=== PATIENT | male | born 1955 | race Caucasian/White ===

== ENCOUNTER 2022-07-05 13:29 | Emergency (ER) | payer OTHER ==
[2022-07-05 13:45] VITALS: BP 140/60; PULSE 93; RESP 18; TEMP 98.4
[2022-07-05] MEDS ORDERED: SODIUM CHLORIDE 0.9% 1,000 ML IV STA (14:16)
--- NOTE | 2022-07-05 14:24 | ED ---
Neuro HPI - General Chief Complaint: Neuro Symptoms/Deficit Stated Complaint: poss TIA Time Seen by Provider: 07/05/22 13:32 Source: patient, EMS, RN notes reviewed, old records reviewed Mode of arrival: EMS Limitations: no limitations - History of Present Illness Is the patient presenting with stroke symptoms?: Yes -: minutes(s) Initial Comments: This is a 67-year-old male to the emergency department for evaluation patient's presenting from home. Patient presents for lightheadedness dizziness weakness not feeling well. Patient states he took his blood pressure medications tonight began to feel like he may pass out lightheadedness with numbness and tingling. Patient then began to have some slurred speech and left arm numbness and tingling. History of atherosclerosis. No headache no chest pain or shortness of breath no abdominal pain, no other complaints. Location: speech, left arm History of same: Yes Place: home Severity: mild, moderate Quality: weak, numb, tingling Improves With: time (Symptoms resolved) Worsens With: none Context: gradual onset Associated Symptoms: denies other symptoms Treatments Prior to Arrival: none - Related Data Home Medications: Home Medications Medication Instructions Recorded Confirmed Aspirin EC [Ecotrin Low Dose] 81 mg PO DAILY 07/05/22 07/05/22 Cholecalciferol [Vitamin D3 (25 25 mcg PO DAILY 07/05/22 07/05/22 Mcg = 1000 Iu)] Fluticasone Propion/Salmeterol 1 puff INHALATION RT-BID 07/05/22 07/05/22 [Fluticasone-Salmeterol 250-50] Loratadine 10 mg PO DAILY 07/05/22 07/05/22 Nitroglycerin Sl Tabs [Nitrostat] 0.4 mg SL Q5M PRN 07/05/22 07/05/22 Omeprazole [PriLOSEC] 20 mg PO DAILY 07/05/22 07/05/22 Rosuvastatin Calcium [Crestor] 40 mg PO DAILY 07/05/22 07/05/22 hydrALAZINE HCL [Apresoline] 50 mg PO DAILY 07/05/22 07/05/22 lisinopriL [Zestril] 10 mg PO DAILY 07/05/22 07/05/22 Allergies/Adverse Reactions: Allergies Allergy/AdvReac Type Severity Reaction Status Date / Time brimonidine Allergy Rash/Hives Verified 07/05/22 14:53 amlodipine [From Norvasc] AdvReac "doesn't Verified 07/05/22 14:53 feel well" atorvastatin [From Lipitor] AdvReac muscle pain Verified 07/05/22 14:53 simvastatin AdvReac Nausea & Verified 07/05/22 14:53 Vomiting Review of Systems ROS Statement: Those systems with pertinent positive or pertinent negative responses have been documented in the HPI. ROS Other: All systems not noted in ROS Statement are negative. General Exam - General Exam Comments Initial Comments: NIH of 0 with no focal neurological deficit currently Limitations: no limitations General appearance: alert, in no apparent distress Head exam: Present: atraumatic, normocephalic, normal inspection Eye exam: Present: normal appearance, PERRL, EOMI. Absent: scleral icterus, conjunctival injection, periorbital swelling ENT exam: Present: normal exam, mucous membranes moist Neck exam: Present: normal inspection. Absent: tenderness, meningismus, lymphadenopathy Respiratory exam: Present: normal lung sounds bilaterally. Absent: respiratory distress, wheezes, rales, rhonchi, stridor Cardiovascular Exam: Present: regular rate, normal rhythm, normal heart sounds. Absent: systolic murmur, diastolic murmur, rubs, gallop, clicks GI/Abdominal exam: Present: soft, normal bowel sounds. Absent: distended, tenderness, guarding, rebound, rigid Extremities exam: Present: normal inspection, full ROM, normal capillary refill. Absent: tenderness, pedal edema, joint swelling, calf tenderness Back exam: Present: normal inspection Neurological exam: Present: alert, oriented X3, CN II-XII intact Psychiatric exam: Present: normal affect, normal mood Skin exam: Present: warm, dry, intact, normal color. Absent: rash Stroke MDM - Lab Data Result diagrams: 07/05/22 14:29 07/05/22 14:29 Lab Results 07/05/22 07/05/22 07/05/22 Range/Units 14:29 14:29 14:29 WBC 9.5 (3.8-10.6) k/uL RBC 4.92 (4.30-5.90) m/uL Hgb 15.1 (13.0-17.5) gm/dL Hct 46.0 (39.0-53.0) % MCV 93.5 (80.0-100.0) fL MCH 30.6 (25.0-35.0) pg MCHC 32.7 (31.0-37.0) g/dL RDW 13.1 (11.5-15.5) % Plt Count 265 (150-450) k/uL MPV 7.7 Neutrophils % 81 % Lymphocytes % 14 % Monocytes % 4 % Eosinophils % 1 % Basophils % 0 % Neutrophils # 7.6 (1.3-7.7) k/uL Lymphocytes # 1.3 (1.0-4.8) k/uL Monocytes # 0.4 (0-1.0) k/uL Eosinophils # 0.1 (0-0.7) k/uL Basophils # 0.0 (0-0.2) k/uL PT 10.6 (9.0-12.0) sec INR 1.0 (<1.2) APTT 23.9 (22.0-30.0) sec Sodium 138 (137-145) mmol/L Potassium 4.2 (3.5-5.1) mmol/L Chloride 102 (98-107) mmol/L Carbon Dioxide 25 (22-30) mmol/L Anion Gap 11 mmol/L BUN 8 L (9-20) mg/dL Creatinine 0.57 L (0.66-1.25) mg/dL Est GFR (CKD-EPI)AfAm >90 (>60 ml/min/1.73 sqM) Est GFR (CKD-EPI)NonAf >90 (>60 ml/min/1.73 sqM) Glucose 99 (74-99) mg/dL Calcium 9.8 (8.4-10.2) mg/dL Total Bilirubin 1.4 H (0.2-1.3) mg/dL AST 23 (17-59) U/L ALT 15 (4-49) U/L Alkaline Phosphatase 101 (38-126) U/L Creatine Kinase 90 (55-170) U/L Troponin I (0.000-0.034) ng/mL Total Protein 7.5 (6.3-8.2) g/dL Albumin 4.5 (3.5-5.0) g/dL 07/05/22 Range/Units 14:29 WBC (3.8-10.6) k/uL RBC (4.30-5.90) m/uL Hgb (13.0-17.5) gm/dL Hct (39.0-53.0) % MCV (80.0-100.0) fL MCH (25.0-35.0) pg MCHC (31.0-37.0) g/dL RDW (11.5-15.5) % Plt Count (150-450) k/uL MPV Neutrophils % % Lymphocytes % % Monocytes % % Eosinophils % % Basophils % % Neutrophils # (1.3-7.7) k/uL Lymphocytes # (1.0-4.8) k/uL Monocytes # (0-1.0) k/uL Eosinophils # (0-0.7) k/uL Basophils # (0-0.2) k/uL PT (9.0-12.0) sec INR (<1.2) APTT (22.0-30.0) sec Sodium (137-145) mmol/L Potassium (3.5-5.1) mmol/L Chloride (98-107) mmol/L Carbon Dioxide (22-30) mmol/L Anion Gap mmol/L BUN (9-20) mg/dL Creatinine (0.66-1.25) mg/dL Est GFR (CKD-EPI)AfAm (>60 ml/min/1.73 sqM) Est GFR (CKD-EPI)NonAf (>60 ml/min/1.73 sqM) Glucose (74-99) mg/dL Calcium (8.4-10.2) mg/dL Total Bilirubin (0.2-1.3) mg/dL AST (17-59) U/L ALT (4-49) U/L Alkaline Phosphatase (38-126) U/L Creatine Kinase (55-170) U/L Troponin I <0.012 (0.000-0.034) ng/mL Total Protein (6.3-8.2) g/dL Albumin (3.5-5.0) g/dL - NIH Stroke Scale 1a. Level of Consciousness: (0) alert 1b. LOC Questions: (0) answers correctly 1c. LOC Commands: (0) performs tasks correctly 2. Best Gaze: (0) normal 3. Visual: (0) no visual loss 4. Facial Palsy: (0) normal symmetrical movement 5a. Motor Arm Left: (0) no drift 5b. Motor Arm Right: (0) no drift 6a. Motor Leg Left: (0) no drift 6b. Motor Leg Right: (0) no drift 7. Limb Ataxia: (0) absent 8. Sensory: (0) normal 9. Best Language: (0) no aphasia 10. Dysarthria: (0) normal 11. Extinction/Inattention: (0) no abnormality - Thrombolytic Inclusion/Exclusion Thrombolytic Inclusion Criteria: Symptom Onset < 4.5 h - Medical Decision Making 67 male to the emergency department for evaluation patient has TIA as all neurological symptoms has resolved. Patient does have atherosclerosis which he is aware of and is follow-up with interventional cardiology, patient will keep that appointment and can be discharged home - Radiology Data Radiology results: report reviewed (CT CTA shows significant atherosclerosis), image reviewed - EKG Data -: EKG Interpreted by Me (EKG sinus 65 [place] 154 QRS 128 QTc 418) Past Medical History Past Medical History: CVA/TIA, Hypertension Course Vital Signs 07/05/22 13:41 Temperature 98.4 F Pulse Rate 93 Respiratory 18 Rate Blood Pressure 140/60 O2 Sat by Pulse 98 Oximetry - Reevaluation(s) Reevaluation #1: 07/05/22 16:51 Medical record. Is reviewed Reevaluation #2: 07/05/22 16:51 Patient symptoms remain resolved Reevaluation #3: 07/05/22 16:51 Patient informed results questions answered Reevaluation #4: 07/05/22 16:51 Was pt. sent in by a medical professional or institution? @ -no Did you speak to anyone other than the patient for history? @ -no Did you review nursing and triage notes? @ -agree Were old charts reviewed? @ -no Differential Diagnosis? @ -prior EKG interpreted by me (3pts min.)? @ -yes X-rays interpreted by me (1pt min.)? @ -yes CT interpreted by me (1pt min.)? @ -no U/S interpreted by me (1pt. min.)? @ -no What testing was considered but not performed? (CT, X-rays, U/S, labs)? Why? @ -no What meds were considered but not given? Why? @ -no Did you discuss the management of the patient with other professionals? @ -no Did you reconcile home meds? @ -no Was smoking cessation discussed for >3mins.? @ -no Was critical care preformed (if so, how long)? @ -no Were there social determinants of health that impacted care today? How? (Homelessness, low income, unemployed, alcoholism, drug addiction, transportation, low edu. Level, literacy, decrease access to med. care, nursing home, rehab)? @ -no Was there de-escalation of care discussed even if they declined? (Discuss DNR or withdrawal of care, Hospice)? @ -no What co-morbidities impacted this encounter? (DM, HTN, Smoking, COPD, CAD, Cancer, CVA, Hep., AIDS, mental health diagnosis, sleep apnea, morbid obesity)? @ -no Was patient admitted / discharged? @ -dc Undiagnosed new problem with uncertain prognosis? @ -no Drug Therapy requiring intensive monitoring for toxicity (Heparin, Nitro, Insulin, Cardizem)? @ -no Were any procedures done? @ -no Diagnosis/symptom? @ -TIA Acute, or Chronic, or Acute on Chronic? @ -acute Uncomplicated (without systemic symptoms) or Complicated (systemic symptoms)? @ -no Side effects of treatment? @ -no Exacerbation, Progression, or Severe Exacerbation] @ -Exacerbation, resolved Poses a threat to life or bodily function? @ -no Reevaluation #5: 07/05/22 16:51 Differential Altered Mental Status: Hypoglycemia, DKA, hypercapnia, ETOH, overdose, CO poisoning, trauma, myxedema coma, HTN encephalopathy, infection, encephalitis, psychosis, intercranial hemorrhage, hepatic encephalopathy, meningitis, CVA, this is not meant to be an all-inclusive list Disposition Clinical Impression: Transient cerebral ischemia Disposition: HOME SELF-CARE Condition: Good Instructions (If sedation given, give patient instructions): Transient Ischemic Attack (ED) Is patient prescribed a controlled substance at d/c from ED?: No Referrals: [facility],Clinic [Primary Care Provider] - 1-2 days Time of Disposition: 16:45
[2022-07-05 14:55] LABS: Basophils % (A) 0 %; Eosinophils # (A) 0.1 k/uL (0-0.7); Eosinophils % (A) 1 %; HGB 15.1 gm/dL (13.0-17.5); Lymphocytes # (A) 1.3 k/uL (1.0-4.8); Lymphocytes % (A) 14 %; MCH 30.6 pg (25.0-35.0); MCHC 32.7 g/dL (31.0-37.0); MCV 93.5 fL (80.0-100.0); Mean Platelet Volume 7.7; Monocytes # (A) 0.4 k/uL (0-1.0); Monocytes % (A) 4 %; Neutrophils # (A) 7.6 k/uL (1.3-7.7); Neutrophils % (A) 81 %; Platelet Count 265 k/uL (150-450); RBC 4.92 m/uL (4.30-5.90); RDW 13.1 % (11.5-15.5); WBC 9.5 k/uL (3.8-10.6)
[2022-07-05 15:11] LABS: ALT 15 U/L (4-49); AST 23 U/L (17-59); African American GFR (CKD) >90 (>60 ml/min/1.73 sqM); Albumin 4.5 g/dL (3.5-5.0); Alkaline Phosphatase 101 U/L (38-126); Anion Gap 11 mmol/L; Blood Urea Nitrogen 8 mg/dL (9-20); Calcium 9.8 mg/dL (8.4-10.2); Carbon Dioxide 25 mmol/L (22-30); Chloride 102 mmol/L (98-107); Creatine Kinase 90 U/L (55-170); Glucose 99 mg/dL (74-99); Non-African American GFR(CKD) >90 (>60 ml/min/1.73 sqM); Potassium 4.2 mmol/L (3.5-5.1); Sodium 138 mmol/L (137-145); Total Bilirubin 1.4 mg/dL (0.2-1.3); Total Protein 7.5 g/dL (6.3-8.2)
[2022-07-05 15:20] LABS: Partial Thromboplastin Time 23.9 sec (22.0-30.0); Prothrombin Time 10.6 sec (9.0-12.0)
--- NOTE | 2022-07-05 15:34 | CT ---
EXAMINATION TYPE: CT brain wo con for TPA DATE OF EXAM: 07/05/2022 COMPARISON: None INDICATION: cva DLP: 1111.6 mGycm, Automated exposure control for dose reduction was used. CONTRAST: None CT of the brain is performed utilizing 3 mm thick sections through the posterior fossa and 3 mm thick sections through the remaining calvarium. Study is performed within 24 hours of arrival to the hosp ital. No abnormal hyperdensity is present to suggest an acute intracranial hemorrhage. No mass lesion is evident. No acute infarcts are evident. Ventricles and sulci are appropriate for the patient age. Paranasal sinuses and mastoid air cells within the [id number] are clear. IMPRESSIONS: 1. No acute intracranial process. Follow-up MRI can be performed as clinically indicated.
--- NOTE | 2022-07-05 15:49 | CT ---
EXAMINATION TYPE: CT angio head neck DATE OF EXAM: 07/05/2022 HISTORY: cva COMPARISON: CT DLP: 464.5 mGycm. Automated Exposure Control for Dose Reduction was Utilized. TECHNIQUE: CTA scan of the neck is performed with IV Contrast, patient injected with 65cc mL of Isov ue 370, axial images are obtained, coronal and sagittal reformatted images are reviewed. Source imag es are reviewed. FINDINGS: Carotid/Vascular Structures: There is a 3 vessel arch. Vertebral arteries are codominant. Common galvin tid arteries bifurcate into internal and external carotid arteries. Calcification and atheromatous pl aquing is present bilaterally. On the right this is 67% narrowed. On the left this is 52% narrowed. I nternal carotid arteries and vertebral arteries are patent to the skull base. Cervical of Mcgarry: Vertebral basilar system appears normal. Posterior cerebral vasculature is unrema rkable. Internal carotid arteries bifurcate normally into A1 and M1 segments. Right A1 segment is obdulia ewhat hypoplastic. A2 segments are normal. The anterior communicating artery is patent. Left Posterio r communicating artery is patent. Right posterior communicating artery is patent. IMPRESSION: 1. Moderate Narrowing between 50 and 69% bilateral internal carotid arteries. Moderate to severe narr owing of 69% right internal carotid artery stenosis. Low end of Moderate narrowing of 50 to percent l eft internal carotid artery. 2. No acute changes sitka of Mcgarry. A somewhat hypoplastic right A1 segment is present. NASCET criteria was used in interpretation of this exam?
== END 2022-07-05 17:01 | disposition home or self-care (01) ==
LOC: EC 13:29
DX: G45.9 Transient cerebral ischemic attack, unspecified (principal); I10 Essential (primary) hypertension; Z79.82 Long term (current) use of aspirin; Z79.899 Other long term (current) drug therapy; Z88.5 Allergy status to narcotic agent; Z88.6 Allergy status to analgesic agent; Z88.8 Allergy status to other drugs, medicaments and biological substances
CPT/HCPCS: 36415; 80053; 82550; 84484; 85025; 85610; 85730; 70496; 70450; 70498; 99284; 96360; Q9967; 93005

== ENCOUNTER 2022-07-24 10:10 | Inpatient (IN) | payer OTHER ==
[~2022-07-24 10:10] MED LIST: ALPRAZolam 0.25 MG TAB PO PRN; ALPRAZolam 0.5 MG TAB PO PRN; ASPIRIN 325 MG TAB PO PRN; CLOPIDOGREL 75 MG TAB PO PRN; NITROGLYCERIN SL TABS 0.4 MG TAB SUBLINGUAL PRN; RX INFO: IV CONTRAST WAS GIVEN 1 EACH MISC MISCELLANE PRN; SODIUM CHLORIDE 0.9% 1,000 ML in EMPTY BAG 1 BAG IV ONE
[2022-07-24] MEDS ORDERED: SODIUM CHLORIDE 0.9% 1,000 ML IV ONE (10:37)
[2022-07-24] MEDS ORDERED: HEPARIN SODIUM 1,000 UN/ML (10ML VL) ONE (12:01)
[2022-07-24] MEDS ORDERED: hydrALAZINE HCL 20 MG/ML 1 ML VIAL ONE (12:21)
[2022-07-24] MEDS ORDERED: hydrALAZINE HCL 20 MG/ML 1 ML VIAL IV ONE ×2 (12:23→12:29)
[2022-07-24] MEDS ORDERED: LIDOCAINE 1% INJ 10MG/ML (20 ML MDV) SQ ONE ×2 (12:24)
[2022-07-24] MEDS: HEPARIN SODIUM 1,000 UN/ML (10ML VL) IV ONE ×2 (12:26→12:52)
[2022-07-24] MEDS ORDERED: HEPARIN SODIUM 1,000 UN/ML (10ML VL) IV ONE (13:11)
[2022-07-24] MEDS ORDERED: IOPAMIDOL-250 100ML BTL INTRAARTER ONE (13:19)
[2022-07-24] MEDS ORDERED: ATROPINE SULFATE 0.1 MG/ML 10ML SYRINGE IV PRN (13:28)
[2022-07-24] MEDS ORDERED: MAG HYDROX/AL HYDROX/SIMETH 30 ML CUP PO PRN (13:28)
--- NOTE | 2022-07-24 13:31 | P.OP ---
Description of Procedure: DESCRIPTION OF PROCEDURE(S): PROCEDURES PERFORMED: Ascending aortic root angiography, right carotid angiography, right carotid stent 9-7mm x 40mm XACT post with a 5.0 balloon INDICATION: Symptomatic right carotid disease CONSENT:I have discussed the risks, benefits and alternative therapies for the above-mentioned procedure and for both sedation/analgesia as well as necessary blood product administration, if indicated, as they pertain to this patient. The patient has indicated understanding and acceptance of the risks and pro cedures discussed. PROCEDURE: After the risks, benefits and alternatives of the above mentioned procedure explained in detail with the patient, informed consent was obtained. Patient was taken to the catheterization lab and prepped and draped in usual fashion. 1% lidocaine was used to anesthetize the right femoral area. A 6- Kenyan sheath was placed in the right femoral artery using modified Seldinger technique. A 5-Kenyan pigtail catheter was inserted to the ascending aorta and DSA imaging was obtained. Next using VTK catheter the proximal right carotid artery was engaged and selective angiography was performed. Angiography showed severe disease and therefore intervention was recommended. Using a 0.035 Warren advantage wire this was placed into the right external carotid artery. The 6Fr sheath was exchanged for a 6Fr destination sheath. Next a 0.014 wire was advanced into the petrous portion of the right internal carotid artery. Predilation was performed with a 4.0 x 20 mm balloon. Next a 9 x 7 x 40 mm XACT stent with placed from the right common to right internal carotid artery. The stent was post dilated with a 5.0 balloon. Preintervention there was 90% stenosis with uninhibted flow. Post intervention there was <10% stenosis and uninhibted flow. Final angiograms were performed. A right femoral angiogram was performed and anatomoy was suitable for closure. A 6Fr Angioseal was placed with hemostasis achieved. The patient tolerated the procedure well. Patient was transported back to the post catheterization holding area in stable condition. Conscious Sedation: Patient was monitored under the direct supervision of vision of myself for conscious sedation using Versed and fentanyl for a total duration of 58 minutes ASCENDING AORTA: There is no significant aneurysm or stenosis. Right common carotid: 0% stenosis Right internal carotid artery: 90% internal carotid artery stenosis FINAL IMPRESSION: 1. 90% right carotid artery stenosis, s/p right carotid stent 9-7mm x 40mm XACT post with a 5.0 balloon PLAN: 1. Aggressive risk factor modification per most recent ACC/AHA guidelines. 2. Aspirin and Plavix for 12 months.
--- NOTE | 2022-07-24 13:47 | IR ---
EXAMINATION TYPE: IR stent intravas non coronary DATE OF EXAM: 07/24/2022 COMPARISON: NONE HISTORY: Fluoroscopy time. Fluoroscopy was provided to the referring clinician.
[2022-07-24 15:02] LABS: Glucose,Whole Blood 94 mg/dL (70-110)
[2022-07-24] MEDS ORDERED: ONDANSETRON 4 MG/2 ML VIAL IVP PRN (16:17)
[2022-07-24] MEDS: PANTOPRAZOLE 40 MG TABLET PO SCH (16:22)
[2022-07-24] MEDS: SYMBICORT 80-4.5 MCG INHALER INHALATION SCH (21:00)
[2022-07-24] MEDS ORDERED: ACETAMINOPHEN TAB 325 MG TAB PO PRN (22:24)
[2022-07-25 06:04] LABS: Basophils % (A) 0 %; Eosinophils # (A) 0.1 k/uL (0-0.7); Eosinophils % (A) 1 %; HCT 42.9 % (39.0-53.0); HGB 13.5 gm/dL (13.0-17.5); Lymphocytes # (A) 1.3 k/uL (1.0-4.8); Lymphocytes % (A) 14 %; MCH 30.1 pg (25.0-35.0); MCHC 31.5 g/dL (31.0-37.0); MCV 95.4 fL (80.0-100.0); Mean Platelet Volume 7.6; Monocytes # (A) 0.5 k/uL (0-1.0); Monocytes % (A) 5 %; Neutrophils # (A) 7.6 k/uL (1.3-7.7); Neutrophils % (A) 79 %; Platelet Count 263 k/uL (150-450); RDW 13.2 % (11.5-15.5); WBC 9.6 k/uL (3.8-10.6)
[2022-07-25 06:28] LABS: African American GFR (CKD) >90 (>60 ml/min/1.73 sqM); Anion Gap 6 mmol/L; Blood Urea Nitrogen 14 mg/dL (9-20); Calcium 9.3 mg/dL (8.4-10.2); Carbon Dioxide 30 mmol/L (22-30); Chloride 103 mmol/L (98-107); Glucose 112 mg/dL (74-99); Non-African American GFR(CKD) >90 (>60 ml/min/1.73 sqM); Potassium 4.7 mmol/L (3.5-5.1); Sodium 139 mmol/L (137-145)
[2022-07-25] MEDS: PANTOPRAZOLE 40 MG TABLET PO SCH (06:49)
[2022-07-25] MEDS: SYMBICORT 80-4.5 MCG INHALER INHALATION SCH (08:37)
[2022-07-25] MEDS ORDERED: ASPIRIN 81 MG PO SCH (09:00)
[2022-07-25] MEDS ORDERED: CLOPIDOGREL 75 MG TAB PO SCH (09:00)
[2022-07-25] MEDS ORDERED: LORATADINE 10 MG TAB PO SCH (09:00)
[2022-07-25] MEDS ORDERED: ATORVASTATIN 80 MG TAB PO SCH (09:00)
--- NOTE | 2022-07-25 09:25 | P.DS ---
Providers Date of admission: 07/24/22 10:10 Attending physician: Carlos Harper DO Primary care physician: [facility] Course: Patient is a pleasant 67-year-old male with history of right carotid artery stenosis as well as recent left TIA symptoms who presented for carotid angiogram with stenting. Patient underwent successful right carotid angiogram with stenting of his right internal carotid artery 07/24/2022. Initially he had significant elevated blood pressure during the procedure however this came down after stenting. He has remained hemodynamically stable without significant hypotension or bradycardia. He denies any chest pain or pressure. He has been tolerating aspirin and Plavix. Appears stable for discharge home 07/25. No significant hematomas right femoral site. Plan - Discharge Summary Discharge Rx Participant: No New Discharge Prescriptions: Continue Nitroglycerin Sl Tabs [Nitrostat] 0.4 mg SL Q5M PRN PRN Reason: Chest Pain Clopidogrel [Plavix] 75 mg PO QAM Rosuvastatin Calcium [Crestor] 40 mg PO QAM Omeprazole [PriLOSEC] 20 mg PO BID Loratadine 10 mg PO QAM Fluticasone Propion/Salmeterol [Fluticasone-Salmeterol 250-50] 1 puff I NHALATION RT-BID Aspirin EC [Ecotrin Low Dose] 81 mg PO QAM Discharge Medication List Aspirin EC [Ecotrin Low Dose] 81 mg PO QAM 07/05/22 [History] Fluticasone Propion/Salmeterol [Fluticasone-Salmeterol 250-50] 1 puff INHALATION RT-BID 07/05/22 [History] Loratadine 10 mg PO QAM 07/05/22 [History] Nitroglycerin Sl Tabs [Nitrostat] 0.4 mg SL Q5M PRN 07/05/22 [History] Omeprazole [PriLOSEC] 20 mg PO BID 07/05/22 [History] Rosuvastatin Calcium [Crestor] 40 mg PO QAM 07/05/22 [History] Clopidogrel [Plavix] 75 mg PO QAM 07/23/22 [History] Follow up Appointment(s)/Referral(s): Carlos Harper DO [STAFF PHYSICIAN] - 08/02/22 8:45 am (SaturdayJuly AT 8:45 am FOR FOLLOW UP APPT) Patient Instructions/Handouts: Moderate Sedation (DC), Pacemaker Generator Change (DC)
[2022-07-25 09:49] VITALS: BP 132/61; PULSE 49; RESP 16; TEMP 98.3
== END 2022-07-25 12:57 | disposition home or self-care (01) | DRG 36 ==
LOC: 2ORMAIN 10:10 → 2SICU 14:20
PROVIDERS: ADMIT Internal Medicine; ATTEND Internal Medicine
PROC: B3101ZZ Fluoroscopy of Thoracic Aorta using Low Osmolar Contrast (ICD-10-PCS; 2022-07-24)
PROC: B41F1ZZ Fluoroscopy of Right Lower Extremity Arteries using Low Osmolar Contrast (ICD-10-PCS; 2022-07-24)
PROC: B3161ZZ Fluoroscopy of Right Internal Carotid Artery using Low Osmolar Contrast (ICD-10-PCS; 2022-07-24)
PROC: 037K3DZ Dilation of Right Internal Carotid Artery with Intraluminal Device, Percutaneous Approach (ICD-10-PCS; principal; 2022-07-24 12:00)
DX: I65.21 Occlusion and stenosis of right carotid artery (principal); I25.10 Atherosclerotic heart disease of native coronary artery without angina pectoris; I25.2 Old myocardial infarction; J44.9 Chronic obstructive pulmonary disease, unspecified; F31.9 Bipolar disorder, unspecified; I10 Essential (primary) hypertension; E78.5 Hyperlipidemia, unspecified; I08.3 Combined rheumatic disorders of mitral, aortic and tricuspid valves; F90.9 Attention-deficit hyperactivity disorder, unspecified type; Z86.73 Personal history of transient ischemic attack (TIA), and cerebral infarction without residual deficits; Z79.82 Long term (current) use of aspirin
CPT/HCPCS: 80048; 85025; 94640

== ENCOUNTER → 2023-07-18 | Outpatient (CLI) | payer OTHER ==
--- NOTE | 2023-07-18 19:04 | US ---
EXAMINATION TYPE: US duplex aorta DATE OF EXAM: 07/18/2023 COMPARISON: NONE CLINICAL INDICATION: Male, 68 years old with history of F17.211 NICOTINE DEPENDENCE; Medical marijuan a, PAD, and [place] 1990s TECHNIQUE: Multiple sonographic images of the abdominal aorta are obtained. FINDINGS: EXAM MEASUREMENTS: Abdominal Aorta: Proximal: 2.8 x 2.8 cm Mid: 2.1 x 2.9 cm Distal: 2.0 x 2.2 cm Bifurcation: Right Iliac: 1.0 x 1.3 cm Left Iliac: 0.8 x 0.9 cm INTERNATIONAL NURSE NOTES: Calcific overall IMPRESSION: Atheromatous plaquing through the abdominal aorta. No aneurysmal dilatation is evident.
== END | disposition home or self-care (01) ==
LOC: RADUSWWP 06:43
PROVIDERS: ATTEND Family Medicine
DX: Z13.6 Encounter for screening for cardiovascular disorders (principal); I70.0 Atherosclerosis of aorta; F17.211 Nicotine dependence, cigarettes, in remission; I73.9 Peripheral vascular disease, unspecified; I25.2 Old myocardial infarction
CPT/HCPCS: 76706

== ENCOUNTER 2023-10-25 13:21 | Inpatient (IN) | payer OTHER ==
[2023-10-25 14:14] LABS: Basophils # (A) 0.1 k/uL (0-0.2); Basophils % (A) 1 %; Eosinophils # (A) 0.4 k/uL (0-0.7); Eosinophils % (A) 4 %; HCT 43.6 % (39.0-53.0); HGB 14.3 gm/dL (13.0-17.5); Lymphocytes # (A) 2.7 k/uL (1.0-4.8); Lymphocytes % (A) 28 %; MCH 30.7 pg (25.0-35.0); MCHC 32.7 g/dL (31.0-37.0); MCV 93.8 fL (80.0-100.0); Mean Platelet Volume 7.4; Monocytes # (A) 0.5 k/uL (0-1.0); Monocytes % (A) 5 %; Neutrophils # (A) 5.7 k/uL (1.3-7.7); Neutrophils % (A) 60 %; Platelet Count 273 k/uL (150-450); RBC 4.64 m/uL (4.30-5.90); RDW 13.4 % (11.5-15.5); WBC 9.6 k/uL (3.8-10.6)
[2023-10-25 14:27] LABS: ALT 31 U/L (4-49); AST 29 U/L (17-59); African American GFR (CKD) >90 (>60 ml/min/1.73 sqM); Albumin 4.2 g/dL (3.5-5.0); Alkaline Phosphatase 68 U/L (38-126); Anion Gap 6 mmol/L; Blood Urea Nitrogen 15 mg/dL (9-20); Calcium 9.7 mg/dL (8.4-10.2); Carbon Dioxide 29 mmol/L (22-30); Chloride 105 mmol/L (98-107); Glucose 95 mg/dL (74-99); Magnesium 2.1 mg/dL (1.6-2.3); Non-African American GFR(CKD) >90 (>60 ml/min/1.73 sqM); Potassium 3.9 mmol/L (3.5-5.1); Sodium 140 mmol/L (137-145); Total Bilirubin 1.1 mg/dL (0.2-1.3); Total Protein 6.8 g/dL (6.3-8.2)
[2023-10-25 14:30] LABS: INR 0.9 (<1.2); Partial Thromboplastin Time 25.8 sec (22.0-30.0); Prothrombin Time 10.5 sec (10.0-12.5)
--- NOTE | 2023-10-25 14:54 | XR ---
EXAMINATION TYPE: XR chest 2V DATE OF EXAM: 10/25/2023 COMPARISON: None HISTORY: 68-year-old male with chest pain TECHNIQUE: PA and lateral views FINDINGS: The cardiomediastinal silhouette, aorta, and pulmonary vasculature are within normal limits. Mild hyp erinflation. Lungs and pleural spaces are clear. IMPRESSION: Mild hyperinflation may relate to depth of inspiration or underlying emphysema. Otherwise, no acute p rocess seen.
--- NOTE | 2023-10-25 15:22 | ED ---
Chest Pain HPI - General Source: patient, family, RN notes reviewed Mode of arrival: ambulatory Limitations: no limitations <Malka Coles - Last Filed: 10/25/23 15:21> - General Source: patient, family, RN notes reviewed Mode of arrival: ambulatory Limitations: no limitations - History of Present Illness MD Complaint: chest pain <Blessing Borja - Last Filed: 10/26/23 03:19> <Sita - Last Filed: 10/26/23 10:54> - General Chief Complaint: Chest Pain Stated Complaint: chest pain Time Seen by Provider: 10/25/23 15:21 - History of Present Illness Initial Comments: Quick note: Patient is a 68-year-old male presented to the ER with a chief complaint of chest discomfort. Patient has an extensive cardiac history and following up with Dr. Harper. He does have [address]. He states he has been having chest pain for about 1 week mild in nature. He states for the past 3 days it is progressively worsening. Worse today which brought him to the ER. Past couple of days he has been able to take nitro every 2 hours with improvement of pain. He denies any shortness of breath, nausea, vomiting, lightheadedness or dizziness. No peripheral edema. (Malka Coles) This is a 68-year-old male who presents to the emergency department for chest pain. Patient has a history of 3 cardiac stents and follows with Dr. Harper, cardiology. Reports intermittent chest pain over the last week, but states that it started to get worse over the last couple of days. Pain is described as a centralized chest pressure. States that he takes nitroglycerin when the pain acts up on him and it improves symptoms for anywhere from 30 minutes to a couple of hours. Most recently took a nitroglycerin around 3 PM and states that it is just on starting to wear off. Denies any shortness of breath. Unsure when he had his last stent placed. (Blessing Borja) - Related Data Home Medications Medication Instructions Recorded Confirmed Aspirin EC [Ecotrin Low Dose] 81 mg PO DAILY@0200 07/05/22 10/25/23 Nitroglycerin Sl Tabs [Nitrostat] 0.4 mg SL Q5M PRN 07/05/22 10/25/23 Rosuvastatin Calcium [Crestor] 40 mg PO DAILY@0200 07/05/22 10/25/23 Ezetimibe [Zetia] 10 mg PO DAILY@0200 10/25/23 10/25/23 dilTIAZem HCL [Tiazac] 120 mg PO DAILY@1400 10/25/23 10/25/23 lisinopriL [Zestril] 10 mg PO DAILY@1400 10/25/23 10/25/23 Allergies Allergy/AdvReac Type Severity Reaction Status Date / Time brimonidine Allergy Rash/Hives Verified 10/25/23 16:30 amlodipine [From Norvasc] AdvReac "doesn't Verified 10/25/23 16:30 feel well" atorvastatin [From Lipitor] AdvReac muscle pain Verified 10/25/23 16:30 simvastatin AdvReac Nausea & Verified 10/25/23 16:30 Vomiting Review of Systems ROS Other: All systems not noted in ROS Statement are negative. <Malka Coles - Last Filed: 10/25/23 15:21> ROS Other: All systems not noted in ROS Statement are negative. <Blessing Borja - Last Filed: 10/26/23 03:19> ROS Other: All systems not noted in ROS Statement are negative. <Sita Steele - Last Filed: 10/26/23 10:54> ROS Statement: Those systems with pertinent positive or pertinent negative responses have been documented in the HPI. Past Medical History Past Medical History: Coronary Artery Disease (CAD), COPD, CVA/TIA, Eye Disorder, GERD/Reflux, Hyperlipidemia, Hypertension, Myocardial Infarction ([place]), Osteoarthritis (OA), Seizure Disorder, Vascular Disorder Additional Past Medical History / Comment(s): Recent TIA, past TIA, occasionally irregular heart beat, nasal infection with post nasal drip which caused stomach pain/nausea with wt loss but now improved, cervical and back ruptured disc/chronic pain, PVD, seizure long ago at dentist office, uvitis L eye and glaucoma R eye/stented. Last Myocardial Infarction Date:: 1994 History of Any Multi-Drug Resistant Organisms: None Reported Past Surgical History: Heart Catheterization, Heart Catheterization With Stent Additional Past Surgical History / Comment(s): PCI/cardiac stents, R eye stent for glaucoma Past Anesthesia/Blood Transfusion Reactions: No Reported Reaction Additional Past Anesthesia/Blood Transfusion Reaction / Comment(s): Pt has never received blood. Date of Last Stent Placement:: 2005, Cyndie Romo. Past Psychological History: ADD/ADHD, Anxiety, Bipolar, Depression Smoking Status: Former smoker Past Alcohol Use History: None Reported Past Drug Use History: Marijuana - Past Family History Father Family Medical History: Hyperlipidemia, Myocardial Infarction ([place]) Additional Family Medical History / Comment(s): of [place] at age 34 yrs. Mother Family Medical History: Coronary Artery Disease (CAD) <Malka Coles - Last Filed: 10/25/23 15:21> General Exam Limitations: no limitations <Malka Coles - Last Filed: 10/25/23 15:21> Limitations: no limitations General appearance: alert, in no apparent distress Head exam: Present: atraumatic, normocephalic, normal inspection Respiratory exam: Present: normal lung sounds bilaterally. Absent: respiratory distress, wheezes, rales, rhonchi, stridor Cardiovascular Exam: Present: regular rate, normal rhythm, normal heart sounds. Absent: systolic murmur, diastolic murmur, rubs, gallop, clicks Neurological exam: Present: alert, oriented X3, CN II-XII intact Psychiatric exam: Present: normal affect, normal mood Skin exam: Present: warm, dry, intact, normal color. Absent: rash <Blessing Borja - Last Filed: 10/26/23 03:19> - General Exam Comments Initial Comments: Visual Physical Exam Vital signs reviewed General: Well-appearing, nontoxic, no acute distress. 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 ] Respiratory 18 16 Rate Blood Pressure 174/72 197/98 Blood Pressure [Right Arm Sitting] O2 Sat by Pulse 98 98 Oximetry 10/25/23 10/25/23 10/25/23 17:44 20:00 20:55 Temperature Pulse Rate 57 L 64 56 L Pulse Rate [ Truck Driver Supervisor ] Respiratory 16 16 16 Rate Blood Pressure 168/78 188/78 168/87 Blood Pressure [Right Arm Sitting] O2 Sat by Pulse 96 98 95 Oximetry 10/26/23 10/26/23 10/26/23 00:13 01:00 01:38 Temperature 97.6 F Pulse Rate 56 L 54 L Pulse Rate [ Truck Driver Supervisor ] Respiratory 14 16 Rate Blood Pressure 177/90 Blood Pressure 190/97 [Right Arm Sitting] O2 Sat by Pulse 97 98 Oximetry 10/26/23 10/26/23 02:57 04:59 Temperature 98.1 F Pulse Rate 57 L Pulse Rate [ 66 Truck Driver Supervisor ] Respiratory 16 16 Rate Blood Pressure 173/84 Blood Pressure 171/94 [Right Arm Sitting] O2 Sat by Pulse 97 96 Oximetry Chest Pain MDM <Malka Coles - Last Filed: 10/25/23 15:21> <Blessing Borja - Last Filed: 10/26/23 03:19> <Sita Steele - Last Filed: 10/26/23 10:54> - MDM I performed the quick note portion of this chart. Electronically signed by Malka Coles PA-C (Malka Coles) This is a 68 year old male who presents to the emergency department for chest pain. Was pt. sent in by a medical professional or institution? @ -No Did you speak to anyone other than the patient for history? @ -No Did you review nursing and triage notes? @ -Yes, and I agree, it is accurate with regards to the patient's symptoms. Were old charts reviewed? @ -No Differential Diagnosis? @ -Differential Chest Pain: Stable Angina, Unstable Angina, STEMI, NSTEMI Aortic Dissection, Pneumothorax, Musculoskeletal, Esophageal Spasm GERD, Cholecystitis, Pancreatitis, Zoster, this is not meant to be an all-inclusive list. EKG interpreted by me (3pts min.)? @ -EKG interpreted by me demonstrating the following: Sinus bradycardia. Ventricular rate 57 bpm, AL interval 140 ms, QRS duration 135 ms, QTc 441 ms. X-rays interpreted by me (1pt min.)? @ -Chest x-ray obtained, my interpretation identifies no localized consolidations or infiltrates. CT interpreted by me (1pt min.)? @ -Not obtained U/S interpreted by me (1pt. min.)? @ -Not obtained What testing was considered but not performed? (CT, X-rays, U/S, labs)? Why? @ -None What meds were considered but not given? Why? @ -None Did you discuss the management of the patient with other professionals? @ -Yes, Dr. Jacobo, who accepts the patient for admission Did you reconcile home meds? @ -No Was smoking cessation discussed for >3mins.? @ -No Was critical care preformed (if so, how long)? @ -Yes, >35 minutes Were there social determinants of health that impacted care today? How? (Homelessness, low income, unemployed, alcoholism, drug addiction, transportation, low edu. Level, literacy, decrease access to med. care, [facility], rehab)? @ -No Was there de-escalation of care discussed even if they declined? (Discuss DNR or withdrawal of care, Hospice)? @ -No What co-morbidities impacted this encounter? (DM, HTN, Smoking, COPD, CAD, Cancer, CVA, Hep., AIDS, mental health diagnosis, sleep apnea, morbid obesity)? @ -CAD, HTN, HLD Was patient admitted / discharged? @ -Admitted. Lab work demonstrates an elevated troponin of 0.093. Chest x-ray reveals no acute process. Patient did have active chest pain on exam. 324 mg of aspirin administered and Nitropaste was applied. Patient has substantial improvement with administration of Nitropaste. Patient admitted to medicine for concern of NSTEMI. He was started on heparin protocol for ACS. Cardiology was consulted and ED attending, Dr. Steele, spoke with cardiology directly as well regarding the patient. Patient kept n.p.o. after midnight for potential cardiac catheterization tomorrow. Case discussed with ED attending Dr. Steele. Undiagnosed new problem with uncertain prognosis? @ -None Drug Therapy requiring intensive monitoring for toxicity (Heparin, Nitro, Insulin, Cardizem)? @ -Heparin Were any procedures done? @ -None Diagnosis/symptom? @ -Non-STEMI Acute, or Chronic, or Acute on Chronic? @ -Acute Uncomplicated (without systemic symptoms) or Complicated (systemic symptoms)? @ -Complicated Side effects of treatment? @ -None Exacerbation, Progression, or Severe Exacerbation] @ -Not applicable Poses a threat to life or bodily function? @ -Yes, can lead to cardiac arrest and (Blessing Borja) Case was presented to and discussed with myself. On my assessment patient is in no acute distress, does endorse chest pain. Reviewed EKG and labs as well as chest x-ray GIORGI. I paged Dr. Harper initially given that he is the patient's adzing and boring machine operator and the patient stated that Dr. Harper sent him to the emergency department. I did not receive a call back, presumably because Dr. Harper was not on-call for cardiology today. I did discuss case with Dr. Gutiérrez, adzing and boring machine operator food and nutrition professor. He kindly reviewed patient's EKGs including repeat r equested by admitting physician Dr. Jacobo, No significant changes from 1st EKG to 2nd EKG indicated evolving UT. Dr. Gutiérrez agreed with plan for heparin gtt and additionally recommended nitro drip. Patient admitted to Dr. Jacobo in stable condition. (Sita Steele) Disposition <Malka Coles - Last Filed: 10/25/23 15:21> <Blessing Borja - Last Filed: 10/26/23 03:19> <Sita Steele - Last Filed: 10/26/23 10:54> Clinical Impression: Acute non-ST elevation myocardial infarction (NSTEMI) Disposition: ADMITTED IP TO THIS HOSP
[2023-10-25] MEDS: ASPIRIN 81 MG PO STA (16:50)
[2023-10-25] MEDS: NITROGLYCERIN OINT 1 INCH/GM PACKET TOPICAL STA (16:50)
[2023-10-25] MEDS: NITROGLYCERIN-D5W PMX 50 MG in DEXTROSE/WATER 1 250ML.BAG IV ONE (17:00)
[2023-10-25] MEDS: HEPARIN SODIUM 1,000 UN/ML (10ML VL) IV ONE (17:38)
[2023-10-25] MEDS: HEPARIN SOD,PORK IN 0.45% NACL 25,000 UNIT in 0.45% NACL 1 250ML.BAG IV SCH (17:40)
[2023-10-25] MEDS ORDERED: NITROGLYCERIN SL TABS 0.4 MG TAB SUBLINGUAL PRN (18:35)
--- NOTE | 2023-10-25 18:36 | P.HPIM ---
History of Present Illness H&P Date: 10/25/23 Chief Complaint: Chest pain 68-year-old man with medical history of CAD status post multiple PCI's, COPD who is an active smoker, hypertension, hyperlipidemia, right carotid stenosis presented for evaluation of chest pain. Patient says that he has had intermittent pressure-like chest pain centrally located which is resolved or significantly improved with nitro. Approximately 2 weeks ago he underwent chemical stress test which was noted to be negative. However, his chest pain continued to get worse and more frequent, and therefore presented to the emergency room for further evaluation. Patient does report active chest pain at the time my evaluation. He reports some nausea, but denies diaphoresis, fevers, chills, palpitations. In the emergency room, patient was afebrile, 185/125, heart rate 58-60, saturating well on room air. CBC is unremarkable. Basic metabolic panel is unremarkable. Liver function tests are unremarkable. Coags are unremarkable. Initial troponin is 0.093. Repeat troponin was 0.09. Initial EKG demonstrated sinus bradycardia with right bundle morphology, diffuse ST depressions. Repeat EKG demonstrates similar findings. These findings were discussed with cardiology who recommended nitro drip, heparin drip. Chest x-ray shows hy perinflated lungs with flattened diaphragms, normal-sized heart. All Systems reviewed and pertinent positives and negatives noted in HPI, all other symptoms are negative Gen: In NAD, non-toxic HEENT: normocephalic, atraumatic, hearing acuity is intant, mucous membranes moist CVS: perfusing all extremities well, no pitting edema, Respiratory: symmetric chest expansion, no accessory muscle use, GI: soft, NTTP, ND, : no suprapubic tenderness, no CVA tenderness MSK/Derm: no rashes, cyanosis Neuro: CN II-XII intact, no motor weakness, Psych: cooperative, euthymic mood, judgment and insight is intact Labs and images as above Assessment/plan: Chest Pain with Typical Features Hypertensive urgency History of CAD status post multiple PCI -Admit as an inpatient -Aspirin 81 mg daily, atorvastatin 80 mg daily -Lipid panel, A1c, TSH -Heparin drip, follow PTT for toxicity -Nitro drip running at 5 mics per hour -Resume home blood pressure medications -CT Chest to rule out dissection COPD without exacerbation Active nicotine use Hyperlipidemia -Home medications reviewed and reconciled Patient is full code Past Medical History Past Medical History: Coronary Artery Disease (CAD), COPD, CVA/TIA, Eye Disorder, GERD/Reflux, Hyperlipidemia, Hypertension, Myocardial Infarction ([place]), Osteoarthritis (OA), Seizure Disorder, Vascular Disorder Additional Past Medical History / Comment(s): Recent TIA, past TIA, occasionally irregular heart beat, nasal infection with post nasal drip which caused stomach pain/nausea with wt loss but now improved, cervical and back ruptured disc/chronic pain, PVD, seizure long ago at dentist office, uvitis L eye and glaucoma R eye/stented. Last Myocardial Infarction Date:: 1994 History of Any Multi-Drug Resistant Organisms: None Reported Past Surgical History: Heart Catheterization, Heart Catheterization With Stent Additional Past Surgical History / Comment(s): PCI/cardiac stents, R eye stent for glaucoma Past Anesthesia/Blood Transfusion Reactions: No Reported Reaction Additional Past Anesthesia/Blood Transfusion Reaction / Comment(s): Pt has never received blood. Date of Last Stent Placement:: 2005, Cyndie Romo. Past Psychological History: ADD/ADHD, Anxiety, Bipolar, Depression Smoking Status: Former smoker Past Alcohol Use History: None Reported Past Drug Use History: Marijuana - Past Family History Father Family Medical History: Hyperlipidemia, Myocardial Infarction ([place]) Additional Family Medical History / Comment(s): of [place] at age 34 yrs. Mother Family Medical History: Coronary Artery Disease (CAD) Medications and Allergies Home Medications Medication Instructions Recorded Confirmed Type Aspirin EC [Ecotrin Low Dose] 81 mg PO DAILY@19907/05/22 10/25/23 History Nitroglycerin Sl Tabs [Nitrostat] 0.4 mg SL Q5M PRN 07/05/22 10/25/23 History Rosuvastatin Calcium [Crestor] 40 mg PO DAILY@19907/05/22 10/25/23 History Ezetimibe [Zetia] 10 mg PO DAILY@19910/25/23 10/25/23 History dilTIAZem HCL [Tiazac] 120 mg PO DAILY@139910/25/23 10/25/23 History lisinopriL [Zestril] 10 mg PO DAILY@139910/25/23 10/25/23 History Allergies Allergy/AdvReac Type Severity Reaction Status Date / Time brimonidine Allergy Rash/Hives Verified 10/25/23 16:30 amlodipine [From Norvasc] AdvReac "doesn't Verified 10/25/23 16:30 feel well" atorvastatin [From Lipitor] AdvReac muscle pain Verified 10/25/23 16:30 simvastatin AdvReac Nausea & Verified 10/25/23 16:30 Vomiting Physical Exam Osteopathic Statement: *. No significant issues noted on an osteopathic structural exam other than those noted in the History and Physical/Consult. Vitals: Vital Signs Temp Pulse Pulse Resp BP Pulse Ox 10/25/23 17:44 57 L 16 168/78 96 10/25/23 17:21 64 10/25/23 17:00 61 16 197/98 98 10/25/23 13:45 98.4 F 72 18 174/72 98 Intake and Output 10/25/23 10/25/23 10/25/23 06:59 14:59 22:59 Other: Weight 61.235 kg Results CBC & Chem 7: 10/25/23 13:52 10/25/23 13:52 Labs: Abnormal Lab Results - Last 24 Hours (Table) 10/25/23 10/25/23 10/25/23 Range/Units 13:52 13:52 17:15 Creatinine 0.65 L (0.66-1.25) mg/dL Troponin I 0.093 H* 0.090 H* (0.000-0.034) ng/mL
--- NOTE | 2023-10-25 23:34 | CT ---
EXAMINATION TYPE: CT angio chest CT DLP: 590 mGycm, Automated exposure control for dose reduction was used. DATE OF EXAM: 10/25/2023 8:38 PM COMPARISON: Same day two-view chest x-ray CLINICAL INDICATION:Male, 68 years old with history of rule out aortic dissection; chest pain TECHNIQUE/CONTRAST: CTA scan of the thorax is performed without and with IV Contrast, patient injected with 100 ml mL of Isovue 370, MIP images are created and reviewed these are created on a separate workstation.. FINDINGS: There is adequate contrast bolus and timing. PULMONARY ARTERIES: There is no evidence for a filling defect within the pulmonary vasculature to sug gest acute pulmonary embolism. Pulmonary trunk is normal in size. Trunk measures no more than 2.4 CM. AORTA: No evidence of aortic intramural hematoma. Moderate calcifications of the aortic valve. Moder ate mixed atherosclerotic disease throughout the thoracic aorta without evidence of dissection flap. Atherosclerosis causes mild to moderate stenosis of the branch vessels from the arch, greatest in the left subclavian. Fusiform ectasia of the ascending aorta to 3.5 cm. There is tapering along the arch and the descending aorta is approximately 2.6 cm. Additional soft and calcified plaque involving the upper abdominal aorta, soft plaque appears somewhat irregular in places and there may be small ather omatous ulcer posteriorly near the level of the diaphragmatic hiatus. No dissection flap is seen. The re appears to high-grade stenosis of the origin of the celiac artery with post stenotic dilatation. H eavy mixed plaque at the proximal SMA, with likely occlusion, and reconstitution of flow distally via collaterals. Proximal right renal artery shows mild disease with mild stenosis. Proximal left renal artery shows moderate mixed disease with moderate stenosis. Visualized infrarenal aorta shows moderat e diffuse mixed disease throughout. Mild ectasia approaching 2.1 cm in some areas. HEART: Normal size with grossly preserved enhancement of its chambers. No pericardial effusion..Moder ate coronary artery calcification and/or stents. LOWER NECK: No significant findings. Unremarkable thyroid. MEDIASTINUM: No enlarged nodes by CT size criteria. SOFT TISSUES/AXILLA: Unremarkable soft tissues. No axillary adenopathy. LUNGS/ PLEURA: Mild upper lobe predominant emphysematous changes and scarring. No acute infiltrate, e ffusion, or pneumothorax. AIRWAY: Central airways are patent. MUSCULOSKELETAL: No acute osseous abnormality. Mild degenerative changes of the spine. UPPER ABDOMEN: Mildly thickened adrenals without focal mass. No acute abnormality is seen. IMPRESSION: 1. Diffuse moderate mixed atherosclerotic disease throughout the aorta and branches, including the c oronary arteries. 2. No aortic dissection. 3. Fusiform ectasia of the ascending thoracic aorta up to 3.5 cm. 4. 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 5. 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 6. No evidence of pulmonary embolus. 7. No acute pulmonary abnormality. 8. Other chronic and likely incidental findings, as described above.
[2023-10-26] MEDS: ATORVASTATIN 80 MG TAB PO SCH (01:53)
[2023-10-26] MEDS: NITROGLYCERIN OINT 1 INCH/GM PACKET TOPICAL SCH (01:53)
[2023-10-26] MEDS: ASPIRIN 81 MG PO SCH (01:54)
[2023-10-26] MEDS: EZETIMIBE 10 MG TAB PO SCH (01:55)
[2023-10-26] MEDS: lisinopriL 10 MG TAB PO SCH (02:17)
[2023-10-26 08:22] LABS: Basophils # (A) 0.1 k/uL (0-0.2); Basophils % (A) 1 %; Eosinophils # (A) 0.2 k/uL (0-0.7); Eosinophils % (A) 2 %; HCT 45.2 % (39.0-53.0); HGB 14.7 gm/dL (13.0-17.5); Lymphocytes # (A) 1.6 k/uL (1.0-4.8); Lymphocytes % (A) 21 %; MCH 30.5 pg (25.0-35.0); MCHC 32.6 g/dL (31.0-37.0); MCV 93.5 fL (80.0-100.0); Mean Platelet Volume 7.3; Monocytes # (A) 0.3 k/uL (0-1.0); Monocytes % (A) 4 %; Neutrophils # (A) 5.2 k/uL (1.3-7.7); Neutrophils % (A) 71 %; Platelet Count 253 k/uL (150-450); RBC 4.83 m/uL (4.30-5.90); RDW 13.3 % (11.5-15.5); WBC 7.4 k/uL (3.8-10.6)
[2023-10-26 08:55] LABS: African American GFR (CKD) >90 (>60 ml/min/1.73 sqM); Anion Gap 7 mmol/L; Blood Urea Nitrogen 13 mg/dL (9-20); Calcium 9.7 mg/dL (8.4-10.2); Carbon Dioxide 28 mmol/L (22-30); Chloride 102 mmol/L (98-107); Glucose 89 mg/dL (74-99); Non-African American GFR(CKD) >90 (>60 ml/min/1.73 sqM); Potassium 4.3 mmol/L (3.5-5.1); Sodium 137 mmol/L (137-145)
[2023-10-26] MEDS: NITROGLYCERIN-D5W PMX 50 MG in DEXTROSE/WATER 1 250ML.BAG IV SCH (09:29)
[2023-10-26] MEDS: ISOSORBIDE MONONITRATE ER 30 MG TAB.ER.24H PO SCH (11:43)
--- NOTE | 2023-10-26 11:57 | P.CRDCN ---
History of Present Illness Consult date: 10/26/23 History of present illness: HISTORY OF PRESENTING ILLNESS Patient is a 68-year-old male with past medical h/o of CAD known to Dr. Harper. He presented to the hospital because of increased worsening substernal chest pressure-like symptoms lately and difficulty in controlling his blood pressures. He has been requiring more than usual nitroglycerin. His pain would get better with nitroglycerin. Because of increased frequency of chest pressure, [facility] where he was instructed to go to the hospital. As per the patient he did had an echocardiogram and a stress test recently but he is not sure about the cardiac results. On admission to ER his ECG shows sinus bradycardia heart rate 57 beats minute with LVH by voltage criteria and small Q waves in lead III and aVF concerning of pseudo infarct pattern incomplete right bundle branch block. He does have mild J-point elevation which is most likely related to repolarization abnormality from his LVH. Troponin is elevated at 0.09 with a flat pattern. He was also noticed to be hypertensive with systolic blood pressure and 180s to 190s mmHg. for this he was started on IV nitroglycerin drip yesterday. His pain has been better since. REVIEW OF SYSTEMS 14 point review of system is negative except what is mentioned above in HPI. PHYSICAL EXAMINATION Vital signs reviewed. Head: Normocephalic. Eyes: Sclerae nonicteric. Neck: Brisk carotid upstroke, no jugular venous distention. Lungs: Clear to auscultation. Heart: Regular rate and rhythm, S1-S2, no S3, no murmur or rub. Abdomen: Soft nontender, positive bowel sounds. Extremities: No edema, intact distal pulses. Neuro: Alert, oritented, no focal deficits. Detailed neuro exam was not performed. ASSESSMENT Stable angina Uncontrolled HTN Prior PAD s/p right carotid Stenting [address] Dave Dyslipidemia PLAN Continue aspirin, Lipitor 80 mg, zetia Cardizem 120 mg twice daily. Lisinopril 20 mg twice daily Add Imdur 60 mg daily and hydralazine 25 mg 4 times daily Continue IV heparin drip for 48 hr I feel patient's symptoms are mostly related to stable angina, and uncontrolled blood pressure. Once blood pressure is controlled and patient continues to have anginal symptoms, will consider cardiac cath. Apparently he had stress test o/p results of which are not accessible this weekend for review. On saturday obtain records from clinic. Obtain an echocardiogram. If echocardiogram shows wall motion abnormality, consider cardiac authorization . Willie Gutiérrez MD, FACC, RPVI Thank you for allowing [facility] to participate in this patient's care. Feel free to reach out in case of any followup questions. Past Medical History Past Medical History: Coronary Artery Disease (CAD), COPD, CVA/TIA, Eye Disorder, GERD/Reflux, Hyperlipidemia, Hypertension, Myocardial Infarction (ND), Osteoarthritis (OA), Seizure Disorder, Vascular Disorder Additional Past Medical History / Comment(s): Recent TIA, past TIA, occasionally irregular heart beat, nasal infection with post nasal drip which caused stomach pain/nausea with wt loss but now improved, cervical and back ruptured disc/chronic pain, PVD, seizure long ago at dentist office, uvitis L eye and glaucoma R eye/stented. Last Myocardial Infarction Date:: 1994 History of Any Multi-Drug Resistant Organisms: None Reported Past Surgical History: Heart Catheterization, Heart Catheterization With Stent Additional Past Surgical History / Comment(s): PCI/cardiac stents, R eye stent for glaucoma Past Anesthesia/Blood Transfusion Reactions: No Reported Reaction Additional Past Anesthesia/Blood Transfusion Reaction / Comment(s): Pt has never received blood. Date of Last Stent Placement:: 2005, Cyndie Sandhya Romo. Past Psychological History: ADD/ADHD, Anxiety, Bipolar, Depression Smoking Status: Former smoker Past Alcohol Use History: None Reported Past Drug Use History: Marijuana - Past Family History Father Family Medical History: Hyperlipidemia, Myocardial Infarction (ND) Additional Family Medical History / Comment(s): of ND at age 34 yrs. Mother Family Medical History: Coronary Artery Disease (CAD) Medications and Allergies Home Medications Medication Instructions Recorded Confirmed Type Aspirin EC [Ecotrin Low Dose] 81 mg PO DAILY@19907/05/22 10/25/23 History Nitroglycerin Sl Tabs [Nitrostat] 0.4 mg SL Q5M PRN 07/05/22 10/25/23 History Rosuvastatin Calcium [Crestor] 40 mg PO DAILY@19907/05/22 10/25/23 History Ezetimibe [Zetia] 10 mg PO DAILY@19910/25/23 10/25/23 History dilTIAZem HCL [Tiazac] 120 mg PO DAILY@1400 10/25/23 10/25/23 History lisinopriL [Zestril] 10 mg PO DAILY@1400 10/25/23 10/25/23 History Allergies Allergy/AdvReac Type Severity Reaction Status Date / Time brimonidine Allergy Rash/Hives Verified 10/25/23 16:30 amlodipine [From Norvasc] AdvReac "doesn't Verified 10/25/23 16:30 feel well" atorvastatin [From Lipitor] AdvReac muscle pain Verified 10/25/23 16:30 simvastatin AdvReac Nausea & Verified 10/25/23 16:30 Vomiting Physical Exam Vitals: Vital Signs Temp Pulse Pulse Resp BP BP Pulse Ox 10/26/23 11:00 66 17 176/93 95 10/26/23 04:59 98.1 F 66 16 171/94 96 10/26/23 02:57 57 L 16 173/84 97 10/26/23 01:38 190/97 10/26/23 01:00 54 L 16 98 10/26/23 00:13 97.6 F 56 L 14 177/90 97 10/25/23 20:55 56 L 16 168/87 95 10/25/23 20:00 64 16 188/78 98 10/25/23 17:44 57 L 16 168/78 96 10/25/23 17:21 64 10/25/23 17:00 61 16 197/98 98 10/25/23 13:45 98.4 F 72 18 174/72 98 Results 10/26/23 07:39 10/26/23 07:39 Cardiac Enzymes 10/25/23 10/25/23 10/25/23 Range/Units 13:52 13:52 17:15 AST 29 (17-59) U/L Troponin I 0.093 H* 0.090 H* (0.000-0.034) ng/mL 10/25/23 Range/Units 20:00 AST (17-59) U/L Troponin I 0.099 H* (0.000-0.034) ng/mL Coagulation 10/25/23 10/25/23 10/26/23 Range/Units 13:52 23:50 07:39 PT 10.5 (10.0-12.5) sec APTT 25.8 48.1 H 43.3 H (22.0-30.0) sec CBC 10/25/23 10/26/23 Range/Units 13:52 07:39 WBC 9.6 7.4 (3.8-10.6) k/uL RBC 4.64 4.83 (4.30-5.90) m/uL Hgb 14.3 14.7 (13.0-17.5) gm/dL Hct 43.6 45.2 (39.0-53.0) % Plt Count 273 253 (150-450) k/uL Comprehensive Metabolic Panel 10/25/23 10/26/23 Range/Units 13:52 07:39 Sodium 140 137 (137-145) mmol/L Potassium 3.9 4.3 (3.5-5.1) mmol/L Chloride 105 102 (98-107) mmol/L Carbon Dioxide 29 28 (22-30) mmol/L BUN 15 13 (9-20) mg/dL Creatinine 0.65 L 0.65 L (0.66-1.25) mg/dL Glucose 95 89 (74-99) mg/dL Calcium 9.7 9.7 (8.4-10.2) mg/dL AST 29 (17-59) U/L ALT 31 (4-49) U/L Alkaline Phosphatase 68 (38-126) U/L Total Protein 6.8 (6.3-8.2) g/dL Albumin 4.2 (3.5-5.0) g/dL Current Medications Generic Name Dose Route Start Last Admin Trade Name Freq PRN Reason Stop Dose Admin Aspirin 81 mg 10/26/23 02:00 10/26/23 01:54 Aspirin 81 Mg PO 81 mg DAILY@0200 [facility] Administration Atorvastatin Calcium 80 mg 10/26/23 02:00 10/26/23 01:53 Atorvastatin 80 Mg Tab PO 80 mg DAILY@0200 [facility] Administration Diltiazem HCl 120 mg 10/26/23 11:30 Diltiazem Cd 120 Mg Cap.Er.24h PO BID IESHA Ezetimibe 10 mg 10/26/23 02:00 10/26/23 01:55 Ezetimibe 10 Mg Tab PO 10 mg DAILY@0200 [facility] Administration Heparin Sodium (Porcine) 0 unit 10/25/23 16:15 Heparin Sodium 1,000 Un/Ml (10ml Vl) IV PER PROTOCOL PRN Low PTT Protocol Hydralazine HCl 25 mg 10/26/23 13:00 Hydralazine Hcl 25 Mg Tab PO QID [facility] Heparin Sodium/Sodium Chloride 250 mls @ 7.348 mls/hr 10/25/23 16:15 10/25/23 17:40 25,000 unit/ Sodium Chloride IV 12 units/kg/hr .Q24H IESHA 7.348 mls/hr Administration Protocol 12 UNITS/KG/HR Isosorbide Mononitrate 60 mg 10/26/23 11:45 Isosorbide Mononitrate Er 60 Mg Tab.Er.24h PO DAILY [facility] Lisinopril 20 mg 10/26/23 08:00 Lisinopril 20 Mg Tab PO BID@0200,1400 [facility] Nitroglycerin 0.4 mg 10/25/23 18:35 Nitroglycerin Sl Tabs 0.4 Mg Tab SUBLINGUAL Q5M PRN Chest Pain 10/26/23 07:39 10/26/23 07:39
[2023-10-26] MEDS: ISOSORBIDE MONONITRATE ER 60 MG TAB.ER.24H PO SCH (13:01)
[2023-10-26] MEDS: DILTIAZEM CD 120 MG CAP.ER.24H PO SCH (13:02)
[2023-10-26 13:14] LABS: Chol/HDL Ratio 4.05 Ratio; LDL Cholesterol,Calculated 132.7 mg/dL (0.0-131.0)
--- NOTE | 2023-10-26 13:21 | P.PN ---
Subjective Progress Note Date: 10/26/23 Patient continues to complain of intermittent chest pain. His blood pressures have remained very elevated overnight. Apparently nitroglycerin drip was not initiated last night. Gen: In NAD, non-toxic HEENT: normocephalic, atraumatic, hearing acuity is intant, mucous membranes moist CVS: perfusing all extremities well, no pitting edema, Respiratory: symmetric chest expansion, no accessory muscle use, GI: soft, NTTP, ND, : no suprapubic tenderness, no CVA tenderness MSK/Derm: no rashes, cyanosis Neuro: CN II-XII intact, no motor weakness, Psych: cooperative, euthymic mood, judgment and insight is intact Hospital course: 68-year-old man with medical history of CAD status post multiple PCI's, COPD who is an active smoker, hypertension, hyperlipidemia, right carotid stenosis presented for evaluation of chest pain. In the emergency room, patient was afebrile, 185/125, heart rate 58-60, saturating well on room air. CBC is unremarkable. Basic metabolic panel is unremarkable. Liver function tests are unremarkable. Coags are unremarkable. Initial troponin is 0.093. Repeat troponin was 0.09. Initial EKG demonstrated sinus bradycardia with right bundle morphology, diffuse ST depressions. Repeat EKG demonstrates similar findings. These findings were discussed with cardiology who recommended nitro drip, heparin drip. Chest x-ray shows hyperinflated lungs with flattened diaphragms, normal-sized heart. Assessment/plan: Chest Pain with Typical Features Hypertensive urgency History of CAD status post multiple PCI -Admit as an inpatient -Aspirin 81 mg daily, atorvastatin 80 mg daily -Lipid panel, A1c, TSH -Heparin drip, follow PTT for toxicity -Discussed the case with cardiology, they are discontinuing nitro drip, initiating hydralazine, Imdur -Patient would be a candidate for beta-salvador if cardiology chooses -Resume home blood pressure medications -CT Chest to rule out dissection was negative for this but showed diffuse atherosclerotic disease including severe celiac artery stenosis. -will consult vascular surgery COPD without exacerbation Active nicotine use Hyperlipidemia -Home medications reviewed and reconciled Patient is full code Objective - Vital Signs Vital signs: Vital Signs Temp 98.1 F 10/26/23 04:59 Pulse 72 10/26/23 13:00 Resp 18 10/26/23 13:00 BP 185/92 10/26/23 13:00 Pulse Ox 97 10/26/23 13:00 FiO2 Intake & Output 10/25/23 10/26/23 10/26/23 18:59 06:59 18:59 Weight 61.235 kg - Labs CBC & Chem 7: 10/26/23 07:39 10/26/23 07:39 Labs: Abnormal Lab Results - Last 24 Hours (Table) 10/25/23 10/25/23 10/25/23 Range/Units 13:52 13:52 17:15 APTT (22.0-30.0) sec Creatinine 0.65 L (0.66-1.25) mg/dL Hemoglobin A1c (<=6.0) % Troponin I 0.093 H* 0.090 H* (0.000-0.034) ng/mL LDL Cholesterol, Calc (0.0-131.0) mg/dL 10/25/23 10/25/23 10/26/23 Range/Units 20:00 23:50 07:39 APTT 48.1 H (22.0-30.0) sec Creatinine (0.66-1.25) mg/dL Hemoglobin A1c 6.2 H (<=6.0) % Troponin I 0.099 H* (0.000-0.034) ng/mL LDL Cholesterol, Calc (0.0-131.0) mg/dL 10/26/23 10/26/23 Range/Units 07:39 07:39 APTT 43.3 H (22.0-30.0) sec Creatinine 0.65 L (0.66-1.25) mg/dL Hemoglobin A1c (<=6.0) % Troponin I (0.000-0.034) ng/mL LDL Cholesterol, Calc 132.7 H (0.0-131.0) mg/dL
[2023-10-26] MEDS ORDERED: lisinopriL 10 MG TAB PO SCH (14:00)
[2023-10-26] MEDS ORDERED: DILTIAZEM CD 120 MG CAP.ER.24H PO SCH (14:00)
[2023-10-26] MEDS: lisinopriL 20 MG TAB PO SCH (14:07)
[2023-10-26] MEDS: hydrALAZINE HCL 25 MG TAB PO SCH (14:11)
--- NOTE | 2023-10-26 16:01 | CA ---
Transthoracic Echo Report Name: Quintin Mathis Age: 68 Gender: M : 1955 Exam Date: 10/26/2023 14:52 Exam Location: [facility] Ht (in): 68 Wt (lb): 135 Ordering Physician: Willie Gutiérrez MD ([email or web address]) Attending/Referring Phys: Evaporator Susie Miller RDCS Procedure CPT: Indications: nstemi Cardiac Hx: Technical Quality: Very technically difficult study Contrast 1: Definity Total Dose (mL): 2 Contrast 2: Total Dose (mL): MEASUREMENTS (Male / Female) Normal Values FINDINGS Left Ventricle Right Ventricle Right Atrium Left Atrium Mitral Valve Aortic Valve Tricuspid Valve Pulmonic Valve Pericardium Aorta CONCLUSIONS Technically difficult study Limited echo with limited views LVEF 55% Normal LV cavity size and systolic function Moderate concentric left ventricular hypertrophy Difficult to assess wall motion abnormality because of limited quality views Previewed by: Dr Willie Gutiérrez (Electronically Signed) Final Date: 26 October 2023 16:01
[2023-10-26] MEDS: HEPARIN SODIUM 1,000 UN/ML (10ML VL) IV PRN (16:26)
[2023-10-26] MEDS: hydroCHLOROthiazide 25 MG TAB PO SCH (20:10)
[2023-10-26 20:43] LABS: Glucose,Whole Blood 99 mg/dL (70-110)
[2023-10-27 06:13] LABS: Glucose,Whole Blood 95 mg/dL (70-110)
[2023-10-27 06:45] LABS: Basophils # (A) 0.1 k/uL (0-0.2); Basophils % (A) 1 %; Eosinophils # (A) 0.1 k/uL (0-0.7); Eosinophils % (A) 2 %; HCT 46.5 % (39.0-53.0); HGB 15.1 gm/dL (13.0-17.5); Lymphocytes # (A) 2.2 k/uL (1.0-4.8); Lymphocytes % (A) 25 %; MCH 30.2 pg (25.0-35.0); MCHC 32.4 g/dL (31.0-37.0); MCV 93.1 fL (80.0-100.0); Mean Platelet Volume 7.2; Monocytes # (A) 0.6 k/uL (0-1.0); Monocytes % (A) 7 %; Neutrophils # (A) 5.8 k/uL (1.3-7.7); Neutrophils % (A) 65 %; Platelet Count 287 k/uL (150-450); RDW 13.2 % (11.5-15.5); WBC 8.9 k/uL (3.8-10.6)
[2023-10-27 07:31] LABS: African American GFR (CKD) >90 (>60 ml/min/1.73 sqM); Anion Gap 9 mmol/L; Blood Urea Nitrogen 14 mg/dL (9-20); Calcium 9.7 mg/dL (8.4-10.2); Carbon Dioxide 26 mmol/L (22-30); Chloride 102 mmol/L (98-107); Glucose 96 mg/dL (74-99); Non-African American GFR(CKD) >90 (>60 ml/min/1.73 sqM); Potassium 3.9 mmol/L (3.5-5.1); Sodium 137 mmol/L (137-145)
--- NOTE | 2023-10-27 08:25 | US ---
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 Limited evaluation of left renal artery due to overlying bowel gas IMPRESSION: Findings consistent with significant renal artery stenosis, left greater than right.
--- NOTE | 2023-10-27 11:19 | P.GSCN ---
History of Present Illness Consult date: 10/27/23 Reason for Consult: 1: Mesenteric arterial occlusive disease. History of present illness: Patient is a 68-year-old male who was admitted to the hospital for cardiac related issues. During workup of this he was found to have mesenteric artery occlusive disease. He denied any previous knowledge of this issue. He reports an episode of abdominal pain approximately 3 years prior which lasted a day or 2 and then completely resolved and has not reoccurred. During this episode he did lose approximately 25 pounds. He denies any food avoidance although due to history of bipolar disease he indicates that he often will not eat however this is not because of fear of food or fear of abdominal discomfort. He has no issues with bowel or bladder function. Past Medical History Past Medical History: Atrial Fibrillation, Coronary Artery Disease (CAD), COPD, CVA/TIA, Eye Disorder, Hyperlipidemia, Hypertension, Myocardial Infarction (SC), Osteoarthritis (OA), Seizure Disorder, Vascular Disorder Additional Past Medical History / Comment(s): Recent TIA, occasionally irregular heart beat, cervical and back ruptured disc/chronic pain, PVD, seizure long ago at dentist office, uvitis (L) eye and (R) eye/stented and glaucoma resolved. Last Myocardial Infarction Date:: 2022 History of Any Multi-Drug Resistant Organisms: None Reported Past Surgical History: Heart Catheterization, Heart Catheterization With Stent Additional Past Surgical History / Comment(s): PCI/cardiac stents, R eye stent for glaucoma (R) carotid stent Past Anesthesia/Blood Transfusion Reactions: No Reported Reaction Additional Past Anesthesia/Blood Transfusion Reaction / Comm: Pt has never received blood. Date of Last Stent Placement:: 2005, Cyndie Romo. Smoking Status: Former smoker - Past Family History Father Family Medical History: Hyperlipidemia, Myocardial Infarction (SC) Additional Family Medical History / Comment(s): of SC at age 34 yrs. Mother Family Medical History: Coronary Artery Disease (CAD) Medications and Allergies Home Medications Medication Instructions Recorded Confirmed Type Aspirin EC [Ecotrin Low Dose] 81 mg PO DAILY@19907/05/22 10/25/23 History Nitroglycerin Sl Tabs [Nitrostat] 0.4 mg SL Q5M PRN 07/05/22 10/25/23 History Rosuvastatin Calcium [Crestor] 40 mg PO DAILY@19907/05/22 10/25/23 History Ezetimibe [Zetia] 10 mg PO DAILY@0200 10/25/23 10/25/23 History dilTIAZem HCL [Tiazac] 120 mg PO DAILY@1400 10/25/23 10/25/23 History lisinopriL [Zestril] 10 mg PO DAILY@1400 10/25/23 10/25/23 History Allergies Allergy/AdvReac Type Severity Reaction Status Date / Time brimonidine Allergy Rash/Hives Verified 10/25/23 16:30 amlodipine [From Norvasc] AdvReac "doesn't Verified 10/25/23 16:30 feel well" atorvastatin [From Lipitor] AdvReac muscle pain Verified 10/25/23 16:30 simvastatin AdvReac Nausea & Verified 10/25/23 16:30 Vomiting Surgical - Exam Osteopathic Statement: *. No significant issues noted on an osteopathic structural exam other than those noted in the History and Physical/Consult. Vital Signs Temp Pulse Resp BP Pulse Ox 98.4 F 72 18 174/72 98 10/25/23 13:45 10/25/23 13:45 10/25/23 13:45 10/25/23 13:45 10/25/23 13:45 Patient Seen Date: 10/27/23 Patient Seen Time: 11:00 Patient is awake, alert and in no apparent distress. Abdomen is soft and otherwise benign. No palpable masses nor tenderness noted. Femoral, popliteal, DP and PT pulses are intact on the right while a femoral pulse is noted on the left. Legs are free of edema, toes are freely movable and nontender. Results - Labs 10/27/23 06:16 10/27/23 06:16 Abnormal Lab Results - Last 24 Hours (Table) 10/26/23 10/26/23 10/26/23 Range/Units 07:39 07:39 13:52 APTT 42.3 H (22.0-30.0) sec Hemoglobin A1c 6.2 H (<=6.0) % LDL Cholesterol, Calc 132.7 H (0.0-131.0) mg/dL 10/26/23 10/27/23 Range/Units 23:07 06:16 APTT 57.6 H 64.9 H (22.0-30.0) sec Hemoglobin A1c (<=6.0) % LDL Cholesterol, Calc (0.0-131.0) mg/dL Diabetes panel 10/26/23 10/26/23 10/27/23 Range/Units 07:39 07:39 06:16 Sodium 137 (137-145) mmol/L Potassium 3.9 (3.5-5.1) mmol/L Chloride 102 (98-107) mmol/L Carbon Dioxide 26 (22-30) mmol/L BUN 14 (9-20) mg/dL Creatinine 0.66 (0.66-1.25) mg/dL Glucose 96 (74-99) mg/dL Hemoglobin A1c 6.2 H (<=6.0) % Calcium 9.7 (8.4-10.2) mg/dL Triglycerides 74.50 (0.00-149.00) mg/dL HDL Cholesterol 48.40 (40.00-60.00) mg/dL Calcium panel 10/27/23 Range/Units 06:16 Calcium 9.7 (8.4-10.2) mg/dL Pituitary panel 10/27/23 Range/Units 06:16 Sodium 137 (137-145) mmol/L Potassium 3.9 (3.5-5.1) mmol/L Chloride 102 (98-107) mmol/L Carbon Dioxide 26 (22-30) mmol/L BUN 14 (9-20) mg/dL Creatinine 0.66 (0.66-1.25) mg/dL Glucose 96 (74-99) mg/dL Calcium 9.7 (8.4-10.2) mg/dL Adrenal panel 10/27/23 Range/Units 06:16 Sodium 137 (137-145) mmol/L Potassium 3.9 (3.5-5.1) mmol/L Chloride 102 (98-107) mmol/L Carbon Dioxide 26 (22-30) mmol/L BUN 14 (9-20) mg/dL Creatinine 0.66 (0.66-1.25) mg/dL Glucose 96 (74-99) mg/dL Calcium 9.7 (8.4-10.2) mg/dL - Imaging CT scan - abdomen: image reviewed CT scan - chest: image reviewed CT scan - pelvis: image reviewed Assessment and Plan Assessment: 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 3: No symptoms of intestinal angina. 4: History of tobacco use, stopped using tobacco in 1996 although does use "medical" marijuana. Plan: 1: Currently the patient is being treated for cardiac related issues and would defer any potential intervention until cardiac status is stable. 2: The patient is asymptomatic in reference to his mesenteric occlusive disease and currently would not recommend any intervention until such time the patient becomes symptomatic. 3: A strongly encouraged the patient avoid any and all tobacco smoke or smoke of any type. 4: Agree with continuation of aspirin and statin therapy. I did supply the patient with my business card and I would be happy to see the patient in the future should symptoms occur. All questions were answered to patient satisfaction. Time with Patient: Greater than 30
[2023-10-27 11:20] LABS: Glucose,Whole Blood 119 mg/dL (70-110)
[2023-10-27 16:08] VITALS: RESP 18
[2023-10-27 16:35] LABS: Glucose,Whole Blood 153 mg/dL (70-110)
--- NOTE | 2023-10-27 16:41 | P.PN ---
Subjective Progress Note Date: 10/27/23 Patients BP signifiantly improved. Denies cp, palps today. Discussed with cardiology, they would like to monitor for another day on IV heparin and d/c tomorrow. Gen: In NAD, non-toxic HEENT: normocephalic, atraumatic, hearing acuity is intant, mucous membranes moist CVS: perfusing all extremities well, no pitting edema, Respiratory: symmetric chest expansion, no accessory muscle use, GI: soft, NTTP, ND, : no suprapubic tenderness, no CVA tenderness MSK/Derm: no rashes, cyanosis Neuro: CN II-XII intact, no motor weakness, Psych: cooperative, euthymic mood, judgment and insight is intact Hospital course: 68-year-old man with medical history of CAD status post multiple PCI's, COPD who is an active smoker, hypertension, hyperlipidemia, right carotid stenosis presented for evaluation of chest pain. In the emergency room, patient was afebrile, 185/125, heart rate 58-60, saturating well on room air. CBC is unremarkable. Basic metabolic panel is unremarkable. Liver function tests are unremarkable. Coags are unremarkable. Initial troponin is 0.093. Repeat troponin was 0.09. Initial EKG demonstrated sinus bradycardia with right bundle morphology, diffuse ST depressions. Repeat EKG demonstrates similar findings. These findings were discussed with cardiology who recommended nitro drip, heparin drip. Chest x-ray shows hyperinflated lungs with flattened diaphragms, normal-sized heart. Assessment/plan: Chest Pain with Typical Features Hypertensive urgency History of CAD status post multiple PCI -Admit as an inpatient -Aspirin 81 mg daily, atorvastatin 80 mg daily -Lipid panel, A1c, TSH -Heparin drip, follow PTT for toxicity -Discussed the case with cardiology, they are discontinuing nitro drip, initiating hydralazine, Imdur -Patient would be a candidate for beta-salvador if cardiology chooses -Resume home blood pressure medications -CT Chest to rule out dissection was negative for this but showed diffuse atherosclerotic disease including severe celiac artery stenosis. -will consult vascular surgery COPD without exacerbation Active nicotine use Hyperlipidemia -Home medications reviewed and reconciled Patient is full code Objective - Vital Signs Vital signs: Vital Signs Temp 97.9 F 10/27/23 16:07 Pulse 85 10/27/23 16:07 Resp 18 10/27/23 16:07 BP 119/67 10/27/23 16:07 Pulse Ox 98 10/27/23 16:07 FiO2 Intake & Output 10/26/23 10/27/23 10/27/23 18:59 06:59 18:59 Intake Total 297.842 50.009 120 Balance 297.842 50.009 120 Weight 58 kg Intake: Intake, IV Titration 177.842 50.009 Amount Heparin Sod,Pork in 0.45% 177.842 50.009 NaCl 25,000 unit In 0.45 % NaCl 1 250ml.bag @ 12 UNITS/KG/HR 7.348 mls/hr IV .Q24H [facility] Rx#: [id number] Oral 120 120 Other: Voiding Method Toilet Toilet # Voids 1 1 # Bowel Movements 1 - Labs CBC & Chem 7: 10/27/23 06:16 10/27/23 06:16 Labs: Abnormal Lab Results - Last 24 Hours (Table) 10/26/23 10/27/23 10/27/23 Range/Units 23:07 06:16 11:16 APTT 57.6 H 64.9 H (22.0-30.0) sec POC Glucose (mg/dL) 119 H (70-110) mg/dL 10/27/23 Range/Units 16:34 APTT (22.0-30.0) sec POC Glucose (mg/dL) 153 H (70-110) mg/dL
--- NOTE | 2023-10-27 18:49 | P.PN ---
Subjective Progress Note Date: 10/27/23 HISTORY OF PRESENTING ILLNESS Patient is a 68-year-old male with past medical h/o of CAD known to Dr. Harper. He presented to the hospital because of increased worsening substernal chest pressure-like symptoms lately and difficulty in controlling his blood pressures. He has been requiring more than usual nitroglycerin. His pain would get better with nitroglycerin. Because of increased frequency of chest pressure, [facility] where he was instructed to go to the hospital. As per the patient he did had an echocardiogram and a stress test recently but he is not sure about the cardiac results. On admission to ER his ECG shows sinus bradycardia heart rate 57 beats minute with LVH by voltage criteria and small Q waves in lead III and aVF concerning of pseudo infarct pattern incomplete right bundle branch block. He does have mild J-point elevation which is most likely related to repolarization abnormality from his LVH. Troponin is elevated at 0.09 with a flat pattern. He was also noticed to be hypertensive with systolic blood pressure and 180s to 190s mmHg. for this he was started on IV nitroglycerin drip yesterday. His pain has been better since. Progress note October 27, 2023 Blood pressure is much better controlled on current regimen. Patient reports that his not having any further symptoms of substernal chest pressure that he presented to the hospital with once his blood pressure got better controlled. PHYSICAL EXAMINATION Vital signs reviewed. Head: Normocephalic. Eyes: Sclerae nonicteric. Neck: Brisk carotid upstroke, no jugular venous distention. Lungs: Clear to auscultation. Heart: Regular rate and rhythm, S1-S2, no S3, no murmur or rub. Abdomen: Soft nontender, positive bowel sounds. Extremities: No edema, intact distal pulses. Neuro: Alert, oritented, no focal deficits. Detailed neuro exam was not performed. ASSESSMENT NSTEMI Stable angina Uncontrolled HTN Prior PAD s/p right carotid Stenting [address] Dave PAD with severe disease involving celiac artery, SMA, renal arteries Dyslipidemia Echocardiogram showed preserved LV size and systolic function with moderate to severe concentric LVH with no obvious regional wall motion abnormality. PLAN Continue aspirin, Lipitor 80 mg, zetia. Lipids are uncontrolled. Concerns of noncompliance. Consider outpatient Repatha Cardizem 120 mg twice daily. Lisinopril 20 mg twice daily Add Imdur 60 mg daily and hydralazine 25 mg 4 times daily HCTZ 25 mg daily Continue IV heparin drip for 48 hr. will complete his IV heparin protocol tomorrow. I feel patient's symptoms are mostly related to stable angina, and uncontrolled blood pressure. Once blood pressure is controlled and patient continues to have anginal symptoms, will consider cardiac cath. Apparently he had stress test o/p results of which are not accessible this weekend for review. On saturday obtain records from clinic. Anticipate d/c tomorrow Objective - Vital Signs Vital signs: Vital Signs Temp 97.9 F 10/27/23 16:07 Pulse 85 10/27/23 16:07 Resp 18 10/27/23 16:07 BP 119/67 10/27/23 16:07 Pulse Ox 98 10/27/23 16:07 FiO2 Intake & Output 10/26/23 10/27/23 10/27/23 18:59 06:59 18:59 Intake Total 297.842 50.009 491.599 Balance 297.842 50.009 491.599 Weight 58 kg Intake: Intake, IV Titration 177.842 50.009 149.599 Amount Heparin Sod,Pork in 0.45% 177.842 50.009 149.599 NaCl 25,000 unit In 0.45 % NaCl 1 250ml.bag @ 12 UNITS/KG/HR 7.348 mls/hr IV [facility] Rx#: [id number] Oral 120 342 Other: Voiding Method Toilet Toilet # Voids 1 1 # Bowel Movements 1 - Labs CBC & Chem 7: 10/27/23 06:16 10/27/23 06:16 Labs: Abnormal Lab Results - Last 24 Hours (Table) 10/26/23 10/27/23 10/27/23 Range/Units 23:07 06:16 11:16 APTT 57.6 H 64.9 H (22.0-30.0) sec POC Glucose (mg/dL) 119 H (70-110) mg/dL 10/27/23 Range/Units 16:34 APTT (22.0-30.0) sec POC Glucose (mg/dL) 153 H (70-110) mg/dL
[2023-10-27 20:22] LABS: Glucose,Whole Blood 125 mg/dL (70-110)
[2023-10-28 06:12] LABS: Glucose,Whole Blood 115 mg/dL (70-110)
[2023-10-28 08:41] VITALS: BP 152/91; PULSE 85; TEMP 98.2
--- NOTE | 2023-10-28 10:12 | P.DS ---
Providers Date of admission: 10/25/23 16:29 Expected date of discharge: 10/28/23 Attending physician: Brittany Jacobo MD Consults: 10/25/23 16:28 Consult Physician Urgent Consulting Provider: Carlos Harper Consult Reason/Comments: NSTEMI Do you want consulting provider notified?: Yes 10/26/23 13:21 Consult Physician Routine Consulting Provider: Chasidy Thompson Consult Reason/Comments: severe celiac artery stenosis Do you want consulting provider notified?: Yes Primary care physician: Cook Hospital Course: Chest Pain with Typical Features Hypertensive urgency History of CAD status post multiple PCI Severe PAD including celiac artery stenosis, renal artery stenosis COPD without exacerbation Active nicotine use Hyperlipidemia Gen: In NAD, non-toxic HEENT: normocephalic, atraumatic, hearing acuity is intant, mucous membranes moist CVS: perfusing all extremities well, no pitting edema, Respiratory: symmetric chest expansion, no accessory muscle use, GI: soft, NTTP, ND, : no suprapubic tenderness, no CVA tenderness MSK/Derm: no rashes, cyanosis Neuro: CN II-XII intact, no motor weakness, Psych: cooperative, euthymic mood, judgment and insight is intact Hospital course: 68-year-old man with medical history of CAD status post multiple PCI's, COPD who is an active smoker, hypertension, hyperlipidemia, right carotid stenosis presented for evaluation of chest pain. In the emergency room, patient was afebrile, 185/125, heart rate 58-60, saturating well on room air. CBC is unremarkable. Basic metabolic panel is unremarkable. Liver function tests are unremarkable. Coags are unremarkable. Initial troponin is 0.093. Repeat troponin was 0.09. Initial EKG demonstrated sinus bradycardia with right bundle morphology, diffuse ST depressions. Repeat EKG demonstrates similar findings. These findings were discussed with cardiology who recommended nitro drip, heparin drip. Chest x-ray shows hyperinflated lungs with flattened diaphragms, normal-sized heart. Pts troponins remained indeterminite, and pain significantly improved with improvement of blood pressure. Cardiology added some BP medication adjustments. CT chest during workup demonstrated diffuse vascular disease, including celiac artery occlusion, renal artery stenosis. Vascular consulted for this and recommended outpatient f/u and close monitoring. Nicotine cessation advised. Pt will be referred to [facility] for Internal Medicine as well as vascular surgery and cardiology on discharge. I spent 38 minutes on this discharge. Patient Condition at Discharge: Good Plan - Discharge Summary New Discharge Prescriptions: New hydrALAZINE HCL [Apresoline] 25 mg PO QID #120 tab Diltiazem Cd [Cardizem CD] 120 mg PO BID #60 cap Isosorbide Mononitrate ER [Imdur] 60 mg PO DAILY #30 tab lisinopriL [Zestril] 20 mg PO BID@0200,1400 #60 tab hydroCHLOROthiazide [Hydrodiuril] 25 mg PO DAILY #30 tab Continue Nitroglycerin Sl Tabs [Nitrostat] 0.4 mg SL Q5M PRN PRN Reason: Chest Pain Rosuvastatin Calcium [Crestor] 40 mg PO DAILY@0200 Aspirin EC [Ecotrin Low Dose] 81 mg PO DAILY@0200 Ezetimibe [Zetia] 10 mg PO DAILY@0200 Discontinued lisinopriL [Zestril] 10 mg PO DAILY@1400 dilTIAZem HCL [Tiazac] 120 mg PO DAILY@1400 Discharge Medication List Aspirin EC [Ecotrin Low Dose] 81 mg PO DAILY@0200 07/05/22 [History] Nitroglycerin Sl Tabs [Nitrostat] 0.4 mg SL Q5M PRN 07/05/22 [History] Rosuvastatin Calcium [Crestor] 40 mg PO DAILY@0200 07/05/22 [History] Ezetimibe [Zetia] 10 mg PO DAILY@0200 10/25/23 [History] Diltiazem Cd [Cardizem CD] 120 mg PO BID #60 cap 10/28/23 [Rx] Isosorbide Mononitrate ER [Imdur] 60 mg PO DAILY #30 tab 10/28/23 [Rx] hydrALAZINE HCL [Apresoline] 25 mg PO QID #120 tab 10/28/23 [Rx] hydroCHLOROthiazide [Hydrodiuril] 25 mg PO DAILY #30 tab 10/28/23 [Rx] lisinopriL [Zestril] 20 mg PO BID@0200,1400 #60 tab 10/28/23 [Rx] Follow up Appointment(s)/Referral(s): Tanika Hunt MD [REFERRING] - 1 Week (To be seen by one of the residents) [facility] [Primary Care Provider] - 1-2 days Discharge Disposition: HOME SELF-CARE
--- NOTE | 2023-10-28 14:08 | P.PN ---
Subjective Progress Note Date: 10/28/23 HISTORY OF PRESENTING ILLNESS Patient is a 68-year-old male with past medical h/o of CAD known to Dr. Harper. He presented to the hospital because of increased worsening substernal chest pressure-like symptoms lately and difficulty in controlling his blood pressures. He has been requiring more than usual nitroglycerin. His pain would get better with nitroglycerin. Because of increased frequency of chest pressure, [facility] where he was instructed to go to the hospital. As per the patient he did had an echocardiogram and a stress test recently but he is not sure about the cardiac results. On admission to ER his ECG shows sinus bradycardia heart rate 57 beats minute with LVH by voltage criteria and small Q waves in lead III and aVF concerning of pseudo infarct pattern incomplete right bundle branch block. He does have mild J-point elevation which is most likely related to repolarization abnormality from his LVH. Troponin is elevated at 0.09 with a flat pattern. He was also noticed to be hypertensive with systolic blood pressure and 180s to 190s mmHg. for this he was started on IV nitroglycerin drip yesterday. His pain has been better since. October 27, 2023 Blood pressure is much better controlled on current regimen. Patient reports t hat his not having any further symptoms of substernal chest pressure that he presented to the hospital with once his blood pressure got better controlled. 10/27 Patient denies having any chest pain but he states that he had a drop in his blood pressure during the night. He was up to the bathroom and did okay with that. Heparin drip remains in place. Limited echocardiogram reveals EF 55%, moderate concentric left ventricular hypertrophy. Difficult to assess wall motion abnormality because of limited quality views. PHYSICAL EXAMINATION Vital signs reviewed. Head: Normocephalic. Eyes: Sclerae nonicteric. Neck: Brisk carotid upstroke, no jugular venous distention. Lungs: Clear to auscultation. Heart: Regular rate and rhythm, S1-S2, no S3, no murmur or rub. Abdomen: Soft nontender, positive bowel sounds. Extremities: No edema, intact distal pulses. Neuro: Alert, oritented, no focal deficits. Detailed neuro exam was not performed. ASSESSMENT NSTEMI Stable angina Uncontrolled HTN Prior PAD s/p right carotid Stenting [address] Dave PAD with severe disease involving celiac artery, SMA, renal arteries Dyslipidemia Echocardiogram showed preserved LV size and systolic function with moderate to severe concentric LVH with no obvious regional wall motion abnormality. PLAN Continue aspirin, Lipitor 80 mg, zetia. Lipids are uncontrolled. Concerns of noncompliance. Consider outpatient Repatha Cardizem 120 mg twice daily. Lisinopril 20 mg twice daily Imdur 60 mg daily and hydralazine 25 mg 4 times daily HCTZ 25 mg daily Discontinue IV heparin Will evaluate echocardiogram from the office and if not available, a full echocardiogram will be ordered. Nurse practitioner note has been reviewed, I agree with documented findings and plan of care. Patient was seen and examined. Objective - Vital Signs Vital signs: Vital Signs Temp 98.1 F 10/28/23 02:53 Pulse 81 10/28/23 02:53 Resp 18 10/28/23 02:53 BP 110/64 10/28/23 02:53 Pulse Ox 96 10/28/23 02:53 FiO2 Intake & Output 10/27/23 10/28/23 10/28/23 18:59 06:59 18:59 Intake Total 491.599 Output Total 0 Balance 491.599 0 Weight 57.7 kg Intake: Intake, IV Titration 149.599 Amount Heparin Sod,Pork in 0.45% 149.599 NaCl 25,000 unit In 0.45 % NaCl 1 250ml.bag @ 12 UNITS/KG/HR 7.348 mls/hr IV .Q24H [facility] Rx#: [id number] Oral 342 Output: Urine 0 Other: Voiding Method Toilet Toilet # Voids 1 - Labs CBC & Chem 7: 10/27/23 06:16 10/27/23 06:16 Labs: Abnormal Lab Results - Last 24 Hours (Table) 10/27/23 10/27/23 10/27/23 Range/Units 11:16 16:34 20:20 APTT (22.0-30.0) sec POC Glucose (mg/dL) 119 H 153 H 125 H (70-110) mg/dL 10/28/23 10/28/23 Range/Units 06:10 07:30 APTT 63.8 H (22.0-30.0) sec POC Glucose (mg/dL) 115 H (70-110) mg/dL
== END 2023-10-28 11:34 | disposition home or self-care (01) | DRG 281 ==
LOC: EC 13:21 → 3SCARD 16:29
PROVIDERS: ADMIT Internal Medicine; ATTEND Internal Medicine
DX: I21.4 Non-ST elevation (NSTEMI) myocardial infarction (principal); F31.30 Bipolar disorder, current episode depressed, mild or moderate severity, unspecified; E11.51 Type 2 diabetes mellitus with diabetic peripheral angiopathy without gangrene; I11.9 Hypertensive heart disease without heart failure; I45.10 Unspecified right bundle-branch block; J44.9 Chronic obstructive pulmonary disease, unspecified; I77.1 Stricture of artery; I70.1 Atherosclerosis of renal artery; I65.21 Occlusion and stenosis of right carotid artery; Z95.828 Presence of other vascular implants and grafts; I48.91 Unspecified atrial fibrillation; I16.0 Hypertensive urgency; E78.5 Hyperlipidemia, unspecified; I25.10 Atherosclerotic heart disease of native coronary artery without angina pectoris; K21.9 Gastro-esophageal reflux disease without esophagitis; M19.90 Unspecified osteoarthritis, unspecified site; J98.4 Other disorders of lung; F41.9 Anxiety disorder, unspecified; F90.9 Attention-deficit hyperactivity disorder, unspecified type; Z86.73 Personal history of transient ischemic attack (TIA), and cerebral infarction without residual deficits; I25.2 Old myocardial infarction; Z79.82 Long term (current) use of aspirin; Z79.899 Other long term (current) drug therapy; Z95.5 Presence of coronary angioplasty implant and graft; Z88.8 Allergy status to other drugs, medicaments and biological substances; Z86.69 Personal history of other diseases of the nervous system and sense organs; Z82.49 Family history of ischemic heart disease and other diseases of the circulatory system
CPT/HCPCS: 36415; 71046; 71275; 80048; 80053; 80061; 83036; 83735; 84443; 84484; 85025; 85610; 85730; 93005; 93308; 93975; 94760; 96365; 96366; 96368; 99291

== ENCOUNTER 2023-11-29 11:36 | Day surgery (SDC) | payer OTHER ==
[~2023-11-29 11:36] MED LIST changes: -ASPIRIN 325 MG TAB PO PRN; -CLOPIDOGREL 75 MG TAB PO PRN; -RX INFO: IV CONTRAST WAS GIVEN 1 EACH MISC MISCELLANE PRN; -SODIUM CHLORIDE 0.9% 1,000 ML in EMPTY BAG 1 BAG IV ONE
[2023-11-29] MEDS: SODIUM CHLORIDE 0.9% 1,000 ML IV ONE (11:56)
[2023-11-29 12:21] VITALS: RESP 16
[2023-11-29 12:31] LABS: Basophils # (A) 0.1 k/uL (0-0.2); Basophils % (A) 1 %; Eosinophils # (A) 0.4 k/uL (0-0.7); Eosinophils % (A) 4 %; HCT 39.2 % (39.0-53.0); Lymphocytes % (A) 22 %; MCH 31.1 pg (25.0-35.0); MCHC 33.1 g/dL (31.0-37.0); MCV 93.8 fL (80.0-100.0); Mean Platelet Volume 7.3; Monocytes # (A) 0.4 k/uL (0-1.0); Monocytes % (A) 5 %; Neutrophils # (A) 6.1 k/uL (1.3-7.7); Neutrophils % (A) 67 %; Platelet Count 307 k/uL (150-450); RBC 4.18 m/uL (4.30-5.90); WBC 9.1 k/uL (3.8-10.6)
[2023-11-29 13:00] LABS: African American GFR (CKD) >90 (>60 ml/min/1.73 sqM); Anion Gap 4 mmol/L; Blood Urea Nitrogen 6 mg/dL (9-20); Calcium 9.5 mg/dL (8.4-10.2); Carbon Dioxide 29 mmol/L (22-30); Chloride 103 mmol/L (98-107); Glucose 86 mg/dL (74-99); Non-African American GFR(CKD) >90 (>60 ml/min/1.73 sqM); Potassium 3.8 mmol/L (3.5-5.1); Sodium 136 mmol/L (137-145)
[2023-11-29] MEDS: fentaNYL (PF) 50 MCG/ML 2 ML AMP IVP ONE (13:19)
[2023-11-29] MEDS: MIDAZOLAM 2 MG/2 ML VIAL IVP ONE (13:19)
[2023-11-29] MEDS: VERAPAMIL SYRINGE (5 MG/10 ML) INTRAARTER ONE (13:20)
[2023-11-29] MEDS: LIDOCAINE 1% INJ 10MG/ML (20 ML MDV) SQ ONE (13:20)
[2023-11-29] MEDS: HEPARIN SODIUM,PORCINE 10,000 UNIT in SODIUM CHLORIDE 0.9% 1,000 ML IRRIGATION PRN (13:22)
[2023-11-29] MEDS: HEPARIN SODIUM,PORCINE (1 ML) 2,500 UNIT in SODIUM CHLORIDE 0.9% 250 ML IRRIGATION PRN (13:22)
[2023-11-29] MEDS: HEPARIN SODIUM 1,000 UN/ML (10ML VL) IVP ONE ×2 (13:24→13:38)
[2023-11-29] MEDS: CLOPIDOGREL 75 MG TAB PO ONE (13:42)
[2023-11-29] MEDS: NITROGLYCERIN 1000MCG/10ML SYRINGE INTRAARTER ONE (13:50)
[2023-11-29] MEDS: IOPAMIDOL-370 100ML BTL INJ ONE ×3 (13:58→14:10)
[2023-11-29] MEDS ORDERED: ZOLPIDEM 5 MG TAB PO PRN (14:47)
[2023-11-29] MEDS ORDERED: ATROPINE SULFATE 0.1 MG/ML 10ML SYRINGE IV PRN (14:47)
[2023-11-29] MEDS ORDERED: RX INFO: IV CONTRAST WAS GIVEN 1 EACH MISC MISCELLANE PRN (14:47)
[2023-11-29] MEDS ORDERED: MAG HYDROX/AL HYDROX/SIMETH 30 ML CUP PO PRN (14:47)
--- NOTE | 2023-11-29 14:47 | P.PRCINT ---
Percutaneous Coronary Int. - Percutaneous Coronary Intervention Percutaneous Coronary Intervention: PROCEDURES PERFORMED: Left heart catheterization, bilateral coronary angiography, ultrasound guided arterial access, PCI mid circumflex with a 3.0 x 8mm Xience SCAR, IVUS circumflex, abdominal angiogram INDICATION: Unstable angina, CAD, uncontrolled, labile blood pressure concerning for renal artery stenosis as well as concern of possible messenteric ischemia CONSENT:I have discussed the risks, benefits and alternative therapies for the above-mentioned procedure and for both sedation/analgesia as well as necessary blood product administration, if indicated, as they pertain to this patient. The patient has indicated understanding and acceptance of the risks and procedures discussed. PROCEDURE: After the risks, benefits and alternatives of the above mentioned procedure explained in detail with the patient, informed consent was obtained. Patient was taken to the catheterization lab and prepped and draped in usual fashion. Ultrasound guidance was used to assess for arterial access. 1% lidocaine was used to anesthetize the right radial artery. A 6-Nauruan sheath was placed in the right radial artery using modified Seldinger technique and ultrasound guidance. Left coronary angiography was performed with a 5-Nauruan JL 3.5 catheter and right coronary angiography was performed with a 5-Nauruan FR5 catheter in various views. A 5-Nauruan FR5 catheter was inserted into the left ventricle and pressure measurements were obtained. a 6-Nauruan pigtail catheter was inserted into the descending abdominal aorta and DSA angiography was performed. the decision was made to perform PCI of the circumflex. Heparin was given. A 6-Nauruan CLS 3.5 guide was used to engage the left main. A 0.014 BMW wire was advanced to the distal circumflex. Predilatation was performed with 2.5 x 8 mm balloon. Intravascular ultrasound showed reference vessel proximally 3.0 mm. There was more diffuse disease distally however treated the more focal lesion. PCI was performed with a 3.0 x 8 mm Xience SCAR. Repeat intravascular ultrasound showed well-expanded stent with no dissection. Final angiograms were performed. Per intervention there is 99% stenosis with SIRI 3 flow and post intervention there was less than 10% stenosis with SIRI 3 flow. The right radial sheath was removed and a TR band was placed with hemostasis achieved. The patient tolerated the procedure well. Patient was transported back to the post catheterization holding area in stable condition. Conscious Sedation: Patient was monitored under the direct supervision of myself for conscious sedation using Versed and fentanyl for a total duration of 46 minutes HEMODYNAMICS: Aorta: 172/72 LV: 181/5, LVDP 13, mean gradient 15 mmHg Abdominal angiogram: There is a 30% proximal right renal artery stenosis and otherwise appears normal on the left renal artery. The celiac artery appears patent and SMA and DEVANG not well visualized. There does appear some dilation of distal abdominal aorta with some artifact from bowel movement. Consider CTA. SELECTIVE CORONARY ARTERIOGRAPHY: LEFT MAIN: The left main is a large caliber vessel which bifurcates into the LAD and circumflex. There is no significant stenosis. LEFT ANTERIOR DESCENDING CORONARY ARTERY: LAD is a large caliber vessel which wraps around to the apex. There is proximal LAD 50% stenosis which extends up to a moderate caliber diagonal 1 branch. Otherwise there are mild luminal irregularities. There are [id number] collaterals. LEFT CIRCUMFLEX CORONARY ARTERY: Left circumflex is a moderate caliber vessel with a mid circumflex 99% stenosis. There is some moderate 30-40% stenosis more distal to this and otherwise mild luminal irregularities. RIGHT CORONARY ARTERY: The right coronary artery is a large caliber vessel which gives off a PDA and PLV branch and is the dominant vessel. There are mid RCA stents which are occluded with 100% mid RCA stenosis and some right to right collaterals however mostly [id number] collaterals. FINAL IMPRESSION: 1. CAD as described above with 100% RCA, proximal LAD 50% and mid circumflex 99% with left to right collaterals 2. Normal left sided filling pressures 3. S/p PCI mid circumflex with a 3.0 x 8mm Xience SCAR, IVUS circumflex 4. Patent renal arteries PLAN: 1. Aggressive risk factor modification per most recent ACC/AHA guidelines. 2. Continue dual antiplatelets for 12 months 3. Consider CTA to evaluate mesenteric arteries, SMA/ DEVANG if concern of mesenteric ischemia with bowel artifact on angiograms.
[2023-11-29 18:41] VITALS: BP 175/81; PULSE 64; TEMP 98.4
[2023-11-29] MEDS: ASPIRIN 325 MG TAB PO STA (18:57)
[2023-11-29] MEDS: SODIUM CHLORIDE 0.9% 1,000 ML in EMPTY BAG 1 BAG IV SCH ×2 (18:58)
[2023-11-30] MEDS ORDERED: ASPIRIN 81 MG PO SCH (09:00)
[2023-11-30] MEDS ORDERED: CLOPIDOGREL 75 MG TAB PO SCH (09:00)
== END 2023-11-29 19:45 | disposition home or self-care (01) ==
LOC: CATHCVL 11:36 → 6NMEDSUR 14:07 → CATHCVL 19:45
PROVIDERS: ATTEND Internal Medicine
CPT/HCPCS: 75625; 80048; 85025; 92978; 93458

== ENCOUNTER 2024-09-09 11:42 | Emergency (ER) | payer OTHER ==
[2024-09-09 11:48] LABS: Glucose,Whole Blood 101 mg/dL (70-110)
[2024-09-09 11:55] VITALS: PULSE 75
[2024-09-09 11:57] VITALS: BP 121/82; RESP 18; TEMP 97.9
[2024-09-09 12:06] LABS: Basophils # (A) 0.08 10*3/uL (0.00-0.10); Basophils % (A) 0.9 %; Eosinophils # (A) 0.34 10*3/uL (0.04-0.35); Eosinophils % (A) 3.7 %; HCT 43.0 % (39.6-50.0); HGB 13.8 g/dL (13.0-17.0); Lymphocytes # (A) 3.03 10*3/uL (0.90-5.00); Lymphocytes % (A) 33.3 %; MCH 30.1 pg (27.0-32.0); MCHC 32.1 g/dL (32.0-37.0); MCV 93.9 fL (80.0-97.0); Monocytes # (A) 0.55 10*3/uL (0.20-1.00); Monocytes % (A) 6.0 %; Neutrophils # (A) 5.07 10*3/uL (1.80-7.70); Neutrophils % (A) 55.7 %; Platelet Count 280 10*3/uL (140-440); RBC 4.58 10*6/uL (4.40-5.60); RDW 14.6 % (11.5-14.5); WBC 9.11 10*3/uL (4.50-10.00)
[2024-09-09] MEDS: DIPH,PERTUS(ACELL)TETVAC-LF 0.5 ML VIAL IM ONE (12:16)
[2024-09-09] MEDS: MORPHINE SULFATE 4 MG/ML SYRINGE IVP STA (12:16)
[2024-09-09 12:19] LABS: ALT 78 U/L (4-49); African American GFR (CKD) >90 (>60 ml/min/1.73 sqM); Anion Gap 8 mmol/L; Blood Urea Nitrogen 6 mg/dL (9-20); Calcium 9.0 mg/dL (8.4-10.2); Carbon Dioxide 23 mmol/L (22-30); Chloride 107 mmol/L (98-107); Glucose 103 mg/dL (74-99); Non-African American GFR(CKD) >90 (>60 ml/min/1.73 sqM); Sodium 138 mmol/L (137-145)
[2024-09-09 12:28] LABS: AST 61 U/L (17-59); Albumin 3.9 g/dL (3.5-5.0); Alkaline Phosphatase 61 U/L (38-126); Potassium 5.0 mmol/L (3.5-5.1); Total Protein 6.7 g/dL (6.3-8.2)
[2024-09-09 12:32] LABS: INR 1.0 (<1.2); Partial Thromboplastin Time 20.6 sec (22.0-30.0); Prothrombin Time 10.7 sec (10.0-12.5)
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
== END 2024-09-09 14:45 | disposition other institution (70) ==
LOC: EC 11:42
DX: S82.251A Displaced comminuted fracture of shaft of right tibia, initial encounter for closed fracture (principal); S82.451A Displaced comminuted fracture of shaft of right fibula, initial encounter for closed fracture; S00.81XA Abrasion of other part of head, initial encounter; Z87.891 Personal history of nicotine dependence; Z88.8 Allergy status to other drugs, medicaments and biological substances; Z86.73 Personal history of transient ischemic attack (TIA), and cerebral infarction without residual deficits; Z23 Encounter for immunization; V23.49XA Other motorcycle driver injured in collision with car, pick-up truck or van in traffic accident, initial encounter; Y92.410 Unspecified street and highway as the place of occurrence of the external cause
CPT/HCPCS: 99285; 90471; 96365; 96375; 29505; 36415; 93005; 86900; 86901; 80053; 83605; 84484; 85025; 85610; 85730; 86850; 80320; 72170; 73590; 71045; 72125; 70450; 90715; J2270; J0690